=== PATIENT | female | born 1990 | race Caucasian/White ===

== ENCOUNTER 2022-12-28 15:20 | Emergency (ER) | payer OTHER ==
--- OUTSIDE RECORDS SUMMARY | 2022-12-28 15:56 | XMS REPORT | Continuity of Care Document ---
:1990 Author Organization [facility] t Address [address] [facility]. [address] [place] [address] Care Team Providers Name Role Phone Pcp, Patient Does Not Have A Primary Care Physician [phone] [facility] Attending Clinician Unavailable Unknown, Attending Attending Clinician Unavailable Jose Carlos Us Attending Clinician JOSE CARLOS HAINES Attending Clinician Unavailable Doctor Unassigned, Linda Attending Clinician Unavailable Darrel Wellington Attending Clinician Unavailable KIRSTIE Attending Clinician Unavailable Zulema Arroyo Attending Clinician Unavailable Ganesh Mcginnis Attending Clinician Unavailable Physician, No Primary or Family Admitting Clinician Unavaila diogo THACKER Admitting Clinician Unavailable Payers Payer Name Policy Type Policy Number Effective Date Expiration Date S ource Problems Condition Condition Condition Status Onset Resolution Last Treating Co mments Source Name Details Category Date Date Treatment Clinician Date 39 weeks 39 weeks Disease Active 2017-05 Unive rs gestation gestation 1-21 ity of of of 00:00: [place] 00 Medi josesito Branch Positive Positive Disease Active 2017-05 Unive rs GBS test GBS test 1-07 ity of 00:00: [place] 00 Medical Branch Obesity Obesity Disease Active Univers (BMI (BMI 9-29 ity of 30-39.9) 30-39.9) 00:00: [place] [facility] Anemia of Anemia of Disease Active Uni vers mother in mother in 9-19 ity of , , [place] ante[place] antepartum 00 Me dical Branch History of History of Disease Active U nivers gestationa gestationa 6-22 it y of l diabetes l diabetes [place] in [place] in prior 00 Medica l , , Br anch currently currently Morbid Morbid Disease Active Univers obesity obesity 06-21 ity of 00:00: [place] [facility] Rubella Rubella Disease Active Univers immune immune 06-21 ity of status not status not [place] known [place] 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 Depression Depression Disease Active U nivers 06-21 ity of 00:00: [place] [facility] Generalize Generalize Disease Active U nivers d anxiety d anxiety 06-21 ity of disorder disorder 00:00: [place] [facility] Personal Personal Problem Active Commo n history of history of Sp jordyn gestationa gestationa - [facility]I l diabetes l diabetes [facility] Supervisio Supervisio Diagnosis Active Common n of n of Spirit - CH I with other with other [facility] reproducti reproducti Me dical ve or ve or Center obstetric obstetric history, history, first first trimester trimester Second Second Diagnosis Active Common trimester trimester Spir it - CH I [facility] Dysuria Dysuria Diagnosis Active Commo n Spirit - CHI [facility] Allergies, Adverse Reactions, Alerts Allergy Allergy Status Severity Reaction(s) Onset Inactive Treating Comm ents Source Name Type Date Date Clinician No Known DA Active U [facility] Allergie 01-09 [facility] 00:00: [facility] 00 are [place] No Known DA Active U [facility] Allergie 01-09 [facility] 00:00: [facility] 00 are [place] NO KNOWN Drug Active Univers ALLERGIE Class ity of S [facility] Social History Social Habit Start Date Stop Date Quantity Comments Source Gender identity Universit y of [facility] Sexual orientation Univer sity of [facility] ASSERTION [facility] Tobacco use and 2022-12-28 2022-12-28 Smokeless Universit y of exposure 00:00:00 00:00:00 tobacco non-user [facility] dical Branch Alcohol intake 2022-12-28 2022-12-28 Current drinker Unive rsity of 00:00:00 00:00:00 of alcohol [place] [facility] (finding) [facility] History of Social 2022-12-28 2022-12-28 Univers ity of function 00:00:00 00:00:00 [facility] Alcohol Comment 2014-06-21 2014-06-21 only socially Univer sity of 00:00:00 00:00:00 [facility] Sex Assigned At [birth year] Universit y of 00:00:00 00:00:00 [facility] Smoking Status Start Date Stop Date Source Never smoked tobacco [facility] Medications Ordered Filled Start Stop Current Ordering Indication Dosage Frequency Signature Comments Components Source Medication Medication Date Date Medication? Clinician (SIG) Name Name CitraNatal CitraNatal Yes Malou 1 tablet Common Hanson Hanson 6-05 [facility] 00:00: - [facility]I 00 [facility] Vitafol-OB Vitafol-OB 2017-0 Yes Malou 1 tablet Common 5-08 [facility] 00:00: - CHI [facility] Diclegis Diclegis Yes Malou 2 Co mmon 427 [facility] 00:00: - [facility] 00 [facility] Immunizations Ordered Filled Immunization Date Status Comments Sourc e Immunization Name Name Influenza Virus 2018-02-21 Completed Universit y of Vaccine Quad ID 00:00:00 [place] [facility] ical 18-64 YRS Branch Influenza Virus 2018-02-21 Completed Universit y of Vaccine 00:00:00 [facility] Influenza Virus 2018-02-21 Completed Universit y of Vaccine Quad ID 00:00:00 [place] [facility] 18-64 YRS Branch Influenza Virus 2018-02-21 Completed Universit y of Vaccine 00:00:00 [facility] TDAP 2018-01-19 Completed University of 00:00:00 [facility] TDAP 2018-01-19 Completed University of 00:00:00 [facility] TDAP 2013-06-24 Completed University of 00:00:00 [facility] TDAP 2013-06-24 Completed [facility] 00:00:00 [facility] Vital Signs Vital Name Observation Time Observation Value Comments Source Systolic blood 2022-12-28 20:04:00 123 mm[Hg] Univer sity of pressure [facility] Diastolic blood 2022-12-28 20:04:00 82 mm[Hg] Unive rsity of pressure [facility] Heart rate 2022-12-28 20:04:00 74 /min [facility] Body temperature 2022-12-28 20:04:00 37.06 Noni [facility] Respiratory rate 2022-12-28 20:04:00 18 /min [facility] Body height 2022-12-28 20:04:00 167.6 cm [facility] Body weight 2022-12-28 20:04:00 73.936 kg [facility] BMI 2022-12-28 20:04:00 26.31 kg/m2 [facility] Oxygen saturation in 2022-12-28 20:04:00 97 /min [facility] Arterial blood by [facility] Pulse oximetry [place] Procedures Procedure Date / Time Performed Performing Clinician [facility] ASSIGNMENT OF BENEFITS 2022-12-28 19:51:49 Doctor Unassigned, No [facility] Encounters Start End Encounter Admission Attending Care Care Encounter Source Date/Time Date/Time Type Type Clinicians Facility Department ID 2022-12-28 2022-12-28 Nurse Nurse, [facility] [id number] [facility] 14:40:00 15:00:00 Visit Unknown, Attending HEALTH [id number] Jose Carlos Daniels [id number] [place] ALEX?BLEA [id number] [place] [address] MEDICAL OFFICE BUILDING 2022-12-28 2022-12-28 Outpatient R ZAKI [facility] [id number] [facility] 14:40:00 14:40:00 JOSE CARLOS dao of [facility] 2022-12-28 2022-12-28 Orders Doctor YOUSIF [id number] Univers 00:00:00 00:00:00 Only Unassigned, ERUM [id number] ity of Linda [facility] [id number] Anders as [id number] [address] 2022-10-11 2022-10-11 Emergency EM LEONARD Wellington EO5 [id number] [facility] 14:52:00 15:31:00 Darrel 46 [facility] are [place] 2021-12-06 2021-12-[address] [facility] [address] [place] 09:22:00 09:22:00 H 0716 [facility] 2021-06-17 2021-06-17 Outpatient [facility]H COH PIJFIFB VRT COH 00:00:00 00:00:00 [id number] 2021-03-06 2021-03-06 Inpatient EM LEONARD Arroyo ERIK [id number] [facility] 11:18:00 13:27:00 Zulema 20 [facility] are [place] 2021-01-09 2021-01-09 Emergency EM LEONARD Mcginnis ERIK [id number] [facility] 02:18:00 04:15:00 Ganesh 72 [facility] are [place] 2017-10-26 2017-10-26 Out[facility] 13 [id number] Common 11:00:00 11:00:00 [facility] 2017-09-28 2017-09-28 [facility] 13 [id number] Common 10:30:00 10:30:00 [facility] 2017-09-23 2017-09-23 [facility] 13 [id number] Common 16:25:00 16:25:00 [facility] 2017-09-23 2017-09-23 [facility] 13 [id number] Common 16:21:00 16:21:00 t [facility] Care [facility] 2017-09-23 2017-09-23 Outpatient Danaycaleb [place] 13 [id number] Common 13:50:00 13:50:00 [facility] 2017-09-17 2017-09-17 Outpatient [facility] 13 [id number] Common 09:45:00 09:45:00 [facility] 2017-09-06 2017-09-06 Outpatient [facility] 13 [id number] Common 10:51:00 10:51:00 [facility] Care [facility] 2017-08-31 2017-08-31 Outpatient [place] [facility] 13 [id number] Common 10:45:00 10:45:00 t [facility] it [facility] Results Test Description Test Time Test Comments Results Result Comments Source HCG POC 2022-10-11 15:11:00 Test Item Value Reference Range Interpretation Comme nts HCG POC NEGATIVE Results of (test IU/L 5.0-25.0 IU/L a re indeterminate and do not ruleout . Because code = HCG values doub le approximately every48 hours in a normal , HCGPOC) patients with l ow levels ofHCG should be resampled and retested after 48 hours toconf irm . URINALYSIS DIPSTICK [id number] 15:05:00 Test Item Value Reference Range Interpretation Comments UA COLOR (test code Yellow YELLOW = COLU) UA APPEARANCE (test Cloudy CLEAR code = APPU) UA GLUCOSE DIPSTICK NEGATIVE MG/AL NEGATIVE (test code = DGLUU) UA BILIRUBIN NEGATIVE NEGATIVE DIPSTICK (test code = BILU) UA KETONE DIPSTICK NEGATIVE MG/DL NEGATIVE (test code = KETU) UA SPECIFIC GRAVITY 1.020 1.000-1.030 (test code = SGU) UA BLOOD DIPSTICK NEGATIVE NEGATIVE (test code = TREVER) UA PH DIPSTICK (test 7.5 4.5-8.5 code = MATHEW) UA PROTEIN DIPSTICK NEGATIVE NEGATIVE (test code = PROU) UA UROBILINOGEN 0.2 EU/dL See_Comment [Automated DIPSTICK (test code message] The system = URO) which generated this result transmitted reference range : <=1.0. The reference range was not used to interpret this result as normal/abnormal . UA NITRITE DIPSTICK NEGATIVE NEGATIVE (test code = XIANG) UA LEUKOCYTE NEGATIVE NEGATIVE ESTERASE DIPSTICK (test code = LEUU) - XR FOOT 3 + V [id number] 16:03:00 [facility] : 1990 Sex: FPatient Name: LIZBET GLASS Unit No: [id number] EXAMS: CPT: [id number] XR FOOT 3 + V RT [id number] Right foot 4 views HISTORY: fall FINDINGS: No acute fracture or dislocation is identified. The soft tissues are unremarkable. IMPRESSION: 1. No acute abnormality is identified. at 1603 Reported and signed by: Carlos Benedict MD CC: Zulema Arroyo MD; Jaimee Restrepo MD Technologist: Liz Taylor Fluoro Time: DAP (Gy m2): Air Kerma (mGy): Trscr Dt/Tm: 03/06/2021 (1603) by:[email or web address] Orig Print D/T: S: 03/06/2021 (1606) BATCH NO: N/A Name: LIZBET GLASS [facility] [employer] Phys: MD Jaimee Pickard [address] [facility] : 1990 Age: 30 Sex: F Ary Soto Loc: T.ERS Exam Date: 03/06/2021 Status: DEP ER PH: FAX: PAGE 1 Signed Report- XR ANKLE 3 + V RT 2021-03-06 12:04:00 [facility] : 1990 Sex: FPatient Name: LIZBET GLASS Unit No: [id number] EXAMS: CPT: [id number] XR ANKLE 3 + V RT [id number] EXAM: XR RIGHT ANKLE 4 VIEWS DATE: 03/06/2021 11:25 AM INDICATION: Fall COMPARISON: None. TECHNIQUE: AP, bilateral oblique, and lateral radiographs of the ankle FINDINGS: No acute fracture or malalignment is identified.The ankle mortise is congruent. Moderate soft tissue swelling is seen about the ankle. There is a small ankle joint effusion. IMPRESSION: Moderate soft tissue swelling about the right ankle without underlying bony abnormality. Small right ankle joint effusion. at 1204 Reported and signed by: LISETTE MARINELLI M.D. CC: Zulema Arroyo MD; Jaimee Restrepo MD Technologist: Liz Taylor Fluoro Time: DAP (Gy m2): Air Kerma (mGy): Trscr Dt/Tm: 03/06/2021 (1204) by:[email or web address] Orig Print D/T: S: 03/06/2021 (1208) BATCH NO: N/A [facility] MD Jaimee Pickard [address] [facility] : 1990 Age: 30 Sex: F Ary Soto Loc: T.ERS Exam Date: 03/06/2021 Status: REG ER PH: FAX: PAGE 1 Signed ReportHCG SERUM [id number] 04:09:00 Test Item Value Reference Range Interpretation Comments HCG SERUM QUANT 36.9 mIU/mL HCG in non-p regnant (test code = individuals < 5 .0 IU/L HCG QUANT) (mIU/mL)HCG res ults greater than or equal t o 25 IU/L are consideredP ositive. Detection of ve ry low levels of HCG d oes not excludepregnanc y. Repeat testing after 4 8 hours is recommended. Pr egnant Gestational Age :1-10 weeks 44.71-256,740 IU/L(mIU/mL)11- 15 weeks 11,556-256,380 IU/L(mIU/mL)16- 22 weeks 7,480.8-111,954 IU/L(mIU/mL)23- 40 weeks 1,531.1-101,556 IU/L(mIU/mL) Th is assay should not be u sed to diagnose any conditionunrela olivia to . DATE OF LAST MENSTRUAL PERIOD: 01/08/21- US TRANSVAGINAL NON [id number] 04:06:00[facility] : 1990 Sex: FPatient Name: LIZBET DURAN Unit No: [id number] EXAMS: CPT: [id number] [place] [id number] Pelvic sonogram, 01/09/2021. Clinical: Vaginal bleeding. Comment: Endovaginal examination was performed. Uterus measures at least 9.6 x 5.4 x 5.9 cm. The cervix measures 4.8 cm. No IUP is identified. The right ovary measures 0.4 x 1.8 x 2.2 cm. The left ovary measures 2.1 x 1.5 x 2.3 cm. No adnexal masses are present. There is no evidence to suggest torsion. IMPRESSION: No IUP identified. at 0406 Reported and signed by: Syed Glass MD CC: Ganesh Angela MD Technologist: Chemo Becker Probe: [id number] Trscr Dt/Tm: 01/09/2021 (0406) by:[email or web address] O rig Print D/T: S: 01/09/2021 (0409) BATCH NO: N/A Name: LIZBET DURAN [facility] [employer] Phys: [id number] - Ganesh Mcginnis MD [address] [facility] : 1990 Age: 30 Sex: F Ary Soto Loc: T.ERS Exam Date: 01/09/2021 Status: REG ER PH: FAX: PAGE 1 Signed ReportBASIC METABOLIC [id number] 03:14:00 Test Item Value Reference Range Interpretation Comments SODIUM (test code 137 mmol/L 136-145 N = NA) POTASSIUM (test 4.1 MMOL/L 3.6-5.2 N code = K) CHLORIDE (test 107 MMOL/L 98-110 N code = CL) CARBON DIOXIDE 22 mEq/L 24-32 L (test code = CO2) GLUCOSE (test code 104 mg/dL 70-110 N = GLU) BLOOD UREA 11 mg/dL 7-18 N NITROGEN (test code = BUN) GLOMERULAR >=60 max >60 The estimated FILTRATION RATE estimate glomerular (test code = GFR) filtration rate is computed usingpatient ra ce, age (>18), sex, and serum creatinin e. If anyof the neede d data elements a re missing the Laboratory [place] ot compute an estimation of t he glomerular filtration rate . CREATININE (test 0.60 mg/dL 0.60-1.30 N code = CREAT) CALCIUM (test code 8.7 mg/dL 8.6-10.3 N = CA) BASIC METABOLIC [id number] 03:11:00 Test Item Value Reference Range Interpretation Comments SODIUM (test code = NA) 137 mmol/L 136-145 N POTASSIUM (test code = K) 4.1 MMOL/L 3.6-5.2 N CHLORIDE (test code = CL) 107 MMOL/L 98-110 N CARBON DIOXIDE (test code = CO2) 22 mEq/L 24-32 L GLUCOSE (test code = GLU) 104 mg/dL 70-110 N BLOOD UREA NITROGEN (test code = mg/dL 7-18 BUN) GLOMERULAR FILTRATION RATE (test >60 code = GFR) CREATININE (test code = CREAT) mg/dL 0.60-1.30 CALCIUM (test code = CA) 8.7 mg/dL 8.6-10.3 N UA RFLX MICR CULT IF [id number] 03:04:00 Test Item Value Reference Range Interpretation Comments UA COLOR (test code = Light-Yellow YELLOW COLU) UA APPEARANCE (test CLEAR CLEAR code = APPU) UA GLUCOSE DIPSTICK NEG MG/DL NEGATIVE (test code = DGLUU) UA BILIRUBIN DIPSTICK NEG NEGATIVE (test code = BILU) UA KETONE DIPSTICK NEG MG/DL NEGATIVE (test code = KETU) UA SPECIFIC GRAVITY 1.015 1.000-1.030 (test code = SGU) UA BLOOD DIPSTICK 2+ NEGATIVE A (test code = TREVER) UA PH DIPSTICK (test 6.0 4.5-8.5 code = MATHEW) UA PROTEIN DIPSTICK NEG MG/DL NEGATIVE (test code = PROU) UA UROBILINOGEN NORMAL EU/dL See_Comment [Automated message] DIPSTICK (test code = The sy stem which URO) generated this result transmit olivia reference range : <=1.0. The refe rence range was not u sed to interpret th is result as normal/abnormal . UA NITRITE DIPSTICK NEG NEGATIVE (test code = XIANG) UA LEUKOCYTE ESTERASE TRACE NEGATIVE A DIPSTICK (test code = LEUU) Indication for culture: Suprapubic PainSpecimen Description: CLEAN CATCHUA RFLX MICR CULT IF [id number] 03:04:00 Test Item Value Reference Range Interpretation Comments UA COLOR (test code = Light-Yellow YELLOW COLU) UA APPEARANCE (test CLEAR CLEAR code = APPU) UA GLUCOSE DIPSTICK NEG MG/DL NEGATIVE (test code = DGLUU) UA BILIRUBIN DIPSTICK NEG NEGATIVE (test code = BILU) UA KETONE DIPSTICK NEG MG/DL NEGATIVE (test code = KETU) UA SPECIFIC GRAVITY 1.015 1.000-1.030 (test code = SGU) UA BLOOD DIPSTICK 2+ NEGATIVE A (test code = TREVER) UA PH DIPSTICK (test 6.0 4.5-8.5 code = MATHEW) UA PROTEIN DIPSTICK NEG MG/DL NEGATIVE (test code = PROU) UA UROBILINOGEN NORMAL EU/dL See_Comment [Automated DIPSTICK (test code = messag e] The system URO) which generated this result transmitted reference range : <=1.0. The reference range was not used to interpret this result as normal/abnormal . UA NITRITE DIPSTICK NEG NEGATIVE (test code = XIANG) UA LEUKOCYTE ESTERASE TRACE NEGATIVE A DIPSTICK (test code = LEUU) UA WBC (test code = 0-3 /HPF 0-3 WBCU) UA RBC (test code = 0-3 /HPF 0-3 RBCU) UA BACTERIA (test NONE SEEN /HPF NONE SEEN code = BACU) UA SQUAMOUS CELLS RARE /HPF NONE-FEW (test code = SQU) UA MUCUS (test code = RARE /LPF NONE-FEW MUCU) Indication for culture: Suprapubic PainSpecimen Description: CLEAN CATCHCBC W/AUTO [id number] 02:55:00 Test Item Value Reference Range Interpretation Comments WHITE BLOOD CELL (test code = WBC) 7.22 K/mm3 5.0-12.0 N RED BLOOD CELL (test code = RBC) 4.65 M/mm3 4.20-5.40 N HEMOGLOBIN (test code = HGB) 12.1 G/DL 12.0-16.0 N HEMATOCRIT (test code = HCT) 39.4 % 34.9-44.5 N MEAN CELL VOLUME (test code = MCV) 85 fL 81-99 N MEAN CELL HGB (test code = MCH) 26.0 PGM 27-31 L MEAN CELL HGB CONCENTRATION (test 30.7 G/DL 33-37 L code = MCHC) RED CELL DISTRIBUTION WIDTH (test 13.1 % 11.6-16.2 N code = RDW) PLATELET COUNT (test code = PLT) 285 K/mm3 130-400 N MEAN PLATELET VOLUME (test code = 10.8 fl 7.4-10.4 H MPV) NEUTROPHIL % (test code = NT%) 55.0 % 43-65 N IMMATURE GRANULOCYTE % (test code 0.3 % 0.0-2.0 N = IG%) LYMPHOCYTE % (test code = LY%) 35.0 % 20.5-45.5 N MONOCYTE % (test code = MO%) 6.8 % 5.5-11.7 N EOSINOPHIL % (test code = EO%) 2.1 % 0.9-2.9 N BASOPHIL % (test code = BA%) 0.8 % 0.2-1.0 N NUCLEATED RBC % (test code = 0.0 % 0-1.0 N NRBC%) NEUTROPHIL # (test code = NT#) 3.97 K/mm3 2.2-4.8 N LYMPHOCYTE # (test code = LY#) 2.53 K/mm3 1.3-2.9 N MONOCYTE # (test code = MO#) 0.49 K/mm3 0.3-0.8 N EOSINOPHIL # (test code = EO#) 0.15 K/MM3 0.0-0.2 N BASOPHIL # (test code = BA#) 0.06 K/mm3 0.0-0.1 N Notes Date/Time Note Provider Source 2022-10-11 14:59:00-00:00 [facility] [place] [facility] EMERGENCY PROVIDER REPORT REPORT#:[id number] REPORT STATUS: Signed DATE:10/11/22 TIME: 1458 PATIENT: LIZBET GLASS UNIT #: [id number] ROOM: BED: AGE: 32 SEX: F PCP PHYS: No Primary or Family Ph ysician SERVICE AUTHOR: Darrel Wellington * ALL edits or amendments must be made on the [employer] Writer/computer document * HPI-Back Pain Under 40 Free Text HPI Notes Free Text HPI Notes Patient is a 32-year-old female who presents to the ER complaining of generalized low back pain. She states that when she woke up morning she could barely get out of bed due to t he pain. She denies any fever, chills, abdominal pain, urinary freq uency, dysuria or current . 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 She has not taken any medication thus far for the discomfort. The pain is much w orse in certain positions and with certain movements. It is also severely tend er to palpation. no overlying skin changes General Initial Greet Date/Time 10/11/22 1455 Presentation Chief Complaint Pain, lumbar )( Sudden in Onset? Yes Onset Occurred Days ago (4) Symptom Duration Since onset, Waxes and wanes Progression since Onset Gradually worsening Caused by Lifting Quality Aching, Painful Severity: Onset Severe Severity: Current Severe Review of Systems Focused Review of Systems Constitutional Denies: Chills, Fever, Lethargy. Respiratory Denies: Cough, non-productive, Cough, productive , Shortness of breath. Cardiovascular Denies: Chest pain, Syncope. GI Denies: Abdominal pain, Diarrhea, Nausea, Vomiti ng. Female Denies: Dysuria, Flank pain, Pelvic pain. Musculoskeletal Reports: Back pain, Lumbar pain, Myalgia, Thorac ic pain. Denies: Extremity pain. Hematologic Denies: Bleeding, Bruising. Neurologic Denies: Bladder dysfunction, Bowel dysfunction, Change LOC, Dizziness, Focal weakness, Headache, Numbness, Slurred speech. Past Medical History - Adult Stated Complaint MID AND LOWER BACK PAIN LEFT SI DE Allergies Coded Allergies: No Known Allergies (01/09/21) Home Medications Active Scripts Acetaminophen (Tylenol) 3 TAB PO Q6H PRN PAIN/ F EVER Acetaminophen (Tylenol) 3 TAB PO Q6H PRN PAIN/ FEVER #30 TABS Prov: 01/09/21 IBUPROFEN (ADVIL) 800 MG PO Q8H IBUPROFEN (ADVIL) 800 MG PO Q8H #30 TABS Prov: 03/06/21 DME - CRUTCHES (CRUTCH SET) EACH [facility] DME - CRUTCHES (CRUTCH SET) EACH [facility] #1 Prov: 03/06/21 Pt reports no significant: Past medical history, Past surgical history, Family history, Social history Physical Exam Vital Signs Vital Signs First Documented: Result Date Time Pulse Ox 100 10/11 1458 Temp 98.6 10/11 1458 Pulse 77 10/11 1458 Resp 18 10/11 1458 B/P 122/78 10/11 1459 B/P Mean 93.0 10/11 1459 Last Documented: Result Date Time Pulse Ox 100 10/11 1459 B/P 122/78 10/11 1459 B/P Mean 93.0 10/11 1459 Pulse 79 10/11 1459 Resp 18 10/11 1459 Temp 98.6 10/11 1458 Review of Vital Signs Reviewed Focused PE General/Const General/Const Awake, Alert, Well appearing MS Neck Neck Atraumatic, Supple, No meningismus, Full r justin of motion, No swelling, Non-tender, No midline vertebral tend, No masses , No crepitus Resp/Chest Respiratory/Chest Breath sounds NL, Breath soun ds = bilat, No respiratory distress, No rales, No rhonchi, No wheezing Cardiovascular Cardiovascular Heart rate NL, Regular rhythm, H eart sounds NL, Peripheral circulation NL Abdomen/GI Abdomen/GI Soft, Non-tender, No guarding, No re bound MS Back Flank/Spine/Paraspinal Thorac paraspinal tend, Lumbar paraspinal tend, Sacral paraspinal tend, Sacral spine tender. Muscle Spasm/ROM Thoracic area spasm, Lumbar area spasm. MS Lower Extrem Lower Ext/Pelvis/MS Inspection NL, No swelling, Non-tender, No erythema, No deformity, Neurologic intact, Vascular intact, N o edema Neurologic Neurologic Oriented X3, Speech NL, No motor def icits, No sensory deficits, Reflexes equal bilat Interpretation Diagnostics Lab Results Interpretation Results Laboratory Tests: 10/11 10/11 1504 1507 Urines Urine Color (YELLOW) Yellow Urine Appearance (CLEAR) Cloudy Urine pH (4.5 - 8.5) 7.5 Ur Specific [place] (1.000 - 1.030) 1.020 Urine Protein (NEGATIVE) NEGATIVE Urine Glucose (UA) (NEGATIVE MG/AL) NEGATIVE Urine Ketones (NEGATIVE MG/DL) NEGATIVE Urine Blood (NEGATIVE) NEGATIVE Urine Nitrite (NEGATIVE) NEGATIVE Urine Bilirubin (NEGATIVE) NEGATIVE Urine Urobilinogen (<=1.0 EU/dL) 0.2 Ur Leukocyte Esterase (NEGATIVE) NEGATIVE POC Urine HCG (IU/L) NEGATIVE Lab Statement Laboratory studies reviewed and considered in th e medical decision-making. Re-Evaluation MDM Re-Evaluation/Progress Back Pain MDM Note The patient presented with acute back pain. The patient is now resting comfortably and feels better, is alert, talkativ e, interactive and in no distress. The repeat examination is unremarkable and benign. The patient is neurologically intact and is ambulatory in the ED. The patient has no fever, no bowel or bladder incontinenc e, no saddle anesthesia, and is otherwise alert and well-appearing. The history, physical ex amination, and diagnostics (if any) do not suggest the presence of acute spinal epidural abscess, acute spinal epidural bleed, cauda equina syndrome, abdominal aortic a neurysm, aortic dissection or other process requiring further testing, treatme nt or consultation in the emergency department. The vi jasper signs have been stable. The patient's condition is stable and appropriate for discharge. The pat ient will pursue further outpatient evaluation with the primary care phys jama or other designated or consulting physician as indicated in the dischar ge instructions. ED Course Medication(s) Ordered Medication(s) Ordered: Central Nervous System Agents Sig/Bob Start time Last Medication Dose Route Stop Time Status Admin Ketorolac 30 MG X1ED STA 10/11 1509 DC 10/11 Tromethamine IM 10/11 1510 1522 Differential Diagnosis Differential Diagnosis Lumbar strain, Musculoske letal pain, Sciatica, Spinal mass, Thoracic strain, Ureterolithiasis, Urinary obstruction, Urinary tract infection, Urolithiasis Patient Discharge Departure Vital Signs/Condition Vital Signs First Documented: Result Date Time Pulse Ox 100 10/11 1458 Temp 98.6 10/11 1458 Pulse 77 10/11 1458 Resp 18 10/11 1458 B/P 122/78 10/11 1459 B/P Mean 93.0 10/11 1459 Last Documented: Result Date Time Pulse Ox 100 10/11 1459 B/P 122/78 10/11 1459 B/P Mean 93.0 10/11 1459 Pulse 79 10/11 1459 Resp 18 10/11 1459 Temp 98.6 10/11 1458 All vital signs available at the time of this en try have been reviewed. Condition Stable, Improved Clinical Impression Clinical Impression Primary Impression: Acute lumbar myofascial stra in Secondary Impressions: Acute thoracic myofascial strain Disposition Decision Discharge )( Discharged to Home Yes )( Time 1524 )( Date 10/11/22 Discharge/Care Plan Counseled Regarding Diagnosis, Lab resul ts, Prescriptions, Need for follow-up, When to return to ED (Auto) Prescriptions Current Visit Scripts Tizanidine (Zanaflex) 2 MG PO Q6H PRN PRN MUSCLE SPASM Tizanidine (Zanaflex) 2 MG PO Q6H PRN PRN MUSCL E SPASM #24 TABS Ibuprofen (Motrin) 600 MG PO TID PRN pain Ibuprofen (Motrin) 600 MG PO TID PRN pain #30 T ABS Tramadol (Ultram) 50 MG PO BID Tramadol (Ultram) 50 MG PO BID #8 TABS Patient Instructions ED Back Pain (Acute or [employer] dorothy) Departure Forms WORK/SCHOOL EXCUSE VARIABLE Any Restrictions Off work/school 2 days Comment: no lifting over 15 pounds for5 days Discharge Note I have spoken with the patie nt and/or caregivers. I have explained the patient's condition, diagnoses and sukhwinder atment plan based on the information available to me at this time. I have answered the patient's and/ or caregiver's questions and addressed any concerns. The patient and/or careg shantell have as good an understanding of the patient 's diagnosis, condition and treatment plan as can be expected at this point. The vital signs have bee n stable. The patient's condition is stable and appr opriate for discharge from the emergency department. The patient will pursue further outpatient evalu ation with the primary care physician or other designated or consulting phys ician as outlined in the discharge instructions. The patient and/or caregivers are agreeable to this plan of care and follow-up instructions have been exp lained in detail. The patient and/or caregivers have received these instructio ns in written format and have expressed an understanding of the discharge inst ructions. The patient and/or caregivers are aware that any significant change in condition or worsening of symptoms should prompt an immediate return to [facility] or the closest emergency department or a call to 911. at 1623 RPT #:[id number] END OF REPORT 2021-03-06 11:25:00-00:00 [facility] EMERGENCY PROVIDER REPORT REPORT#:[id number] REPORT STATUS: Signed DATE:03/06/21 TIME: 112 PATIENT: LIZBET GLASS UNIT #: [id number] ROOM: BED: AGE: 30 SEX: F PCP PHYS: No Primary or Family Ph ysician SERVICE AUTHOR: MD Jaimee Restrepo PA * ALL edits or amendments must be made on the [employer] Writer/computer document * MD Jaimee Restrepo 03/06/21 1125: HPI-Extremity Prob Lower Free Text HPI Notes Free Text HPI Notes This 30-year-old female in E D complaints right ankle pain. Patient was carrying child downstairs yesterday night. Patient lost b alance and fell and twisted right ankle. Patient denies hitting head or loss of consciousness.. Last night patient able to bear weight. Patient not iced swelling and increased tenderness this morning. Patient is here to rule out any fr acture. Denies any fever, chills, nausea, vomiting, di zziness, chest pain, shortness of breath, abdominal pain or back pain. Alert and oriented x3. No acu te distress. General Confirmed Patient Yes Patient Type New patient Initial Greet Date/Time 03/06/21 1122 Presentation Chief Complaint Ankle problem R Risk-Extremity Prob Lower Risk Stratification Well's Criteria for DVT Well's Criteria for DVT Response Value Active Cancer? No 0 Immob Lower Extremity? No 0 Bed >3 Days/Surg Last 4 Weeks? No 0 Local Tend Deep Veinous Sys? No 0 Entire Leg Swollen? No 0 Calf Swelling >3cm? No 0 Pit Edema in Symptomatic Leg? No 0 Collat Superficial Veins? No 0 Previous Documented DVT? No 0 Total 0 Review of Systems Focused Review of Systems Constitutional Denies: Chills, Fever, Lethargy. Musculoskeletal Reports: Joint pain, Joint swelling. Skin Denies: Diaphoresis, Rash. Neurologic Denies: Focal weakness, Numbness. Additional Review of Systems Eyes Denies: Blurred R, Blurred L. Ears/Nose/Throat Denies: Ear drainage R, Ear drainage L. Respiratory Denies: Cough, non-productive, Cough, productive . Cardiovascular Denies: Chest pain, Dyspnea on exertion. GI Denies: Abdominal pain, Anorexia. Female Denies: Dysuria, Flank pain. Hematologic Denies: Adenopathy, Bleeding. Endocrine Denies: Cold intolerance, Heat intolerance. Allergy/Immun Denies: Allergic reaction, Anaphylaxis. Psychiatric Denies: Agitation, Anxiety. Past Medical History - Adult Stated Complaint RIGHT ANKLE Allergies Coded Allergies: No Known Allergies (01/09/21) Home Medications Active Scripts Acetaminophen (Tylenol) 3 TAB PO Q6H PRN PAIN/ F EVER Acetaminophen (Tylenol) 3 TAB PO Q6H PRN PAIN/ FEVER #30 TABS Prov: 01/09/21 Review of Nursing Notes Rev avail, and agree Physical Exam Vital Signs Vital Signs First Documented: Result Date Time Pulse Ox 99 03/06 1121 B/P 128/77 03/06 1121 B/P Mean 94 03/06 1121 O2 Delivery Room air 03/06 1121 Temp 98.3 03/06 1121 Pulse 99 03/06 1121 Resp 18 03/06 1121 Last Documented: Result Date Time Pulse Ox 97 03/06 1326 B/P 122/75 03/06 1326 B/P Mean 90 03/06 132 O2 Delivery Room air 03/06 132 Temp 98.2 03/06 132 Pulse 78 03/06 1326 Resp 16 03/06 1326 Review of Vital Signs Reviewed Focused PE General/Const General/Const Awake, Alert, Well appearing Resp/Chest Respiratory/Chest Breath sounds NL, Breath soun ds = bilat, No respiratory distress, No rales, No rhonchi, No wheezing Cardiovascular Cardiovascular Heart rate NL, Regular rhythm, H eart sounds NL, Peripheral circulation NL MS Lower Extrem Lower Ext/Pelvis/MS Atraumatic, Inspection NL, Full range of motion, No swelling, Non-tender, No erythema, No deformity, Neurologic intact, Vascular intact, No edema MS Ankle/Foot Ankle/Foot Atraumatic, Inspection NL, Full rang e of motion, No swelling, No erythema, Non-tender, No def ormity, Neurologic intact, Vascular intact, No edema Right Ankle Swelling present, Tenderness present, Tender la t ligaments, Tender medial ligaments. Skin Skin Color NL, Warm, Dry, Intact, Turgor NL, No swelling Neurologic Neurologic Oriented X3, Speech NL, No motor def icits, No sensory deficits Additional PE MS Head Head Atraumatic, Normocephalic Eyes Eyes Atraumatic, PERRL Ears/Nose/Throat Ears/Nose/Throat Atraumatic, Airway patent MS Neck Neck Atraumatic, Supple Abdomen/GI Abdomen/GI Atraumatic, Soft MS Back Back Atraumatic, Inspection NL Lymphatic Lymphatic No gross adenopathy, No cervical darlene opathy MS Upper Extrem Upper Extremity/MS Atraumatic, Inspection NL MS Wrist/Hand Wrist/Hand Atraumatic, Inspection NL Psychiatric Psychiatric Affect NL, Mood NL Interpretation Diagnostics Lab Results Interpretation Results Recent Impressions: RADIOLOGY - XR FOOT 3 + V RT 03/06 1145 Report Impression - Status: SIGNED Entered: 03/06/2021 1606 IMPRESSION: 1. No acute abnormality is identified. Impression By: [email or web address] - Carlos Benedict MD RADIOLOGY - XR ANKLE 3 + V RT 03/06 1145 Report Impression - Status: SIGNED Entered: 03/06/2021 1208 IMPRESSION: Moderate soft tissue swelling about the right an kle without underlying bony abnormality. Small right ankle joint effusion. Impression By: [email or web address] - LISETTE MARINELLI M.D. Lab Imaging Statement radiographic studies reviewed and considered in the medical decision-making. Point of Care Testing Pulse Oximetry Pulse Ox % 98 On: Room air Interpretation Interpreted by fl Time 1132 Re-Evaluation MDM ED Course Medication(s) Ordered Medication(s) Ordered: Central Nervous System Agents Sig/Bob Start time Last Medication Dose Route Stop Time Status Admin Ketorolac 60 MG X1ED STA 03/06 1124 DC 03/06 Tromethamine IM 03/06 1125 1130 Free Text MDM Notes Free Text MDM Notes X-ray right ankle shows IMPRESSION: Moderate soft tissue swelling about the right a nkle without underlying bony abnormality. Small right ankle joint effusion. X-ray of the area. Rx for crutches given. Ave t advised to follow-up with orthopedics. Patient Discharge Departure Vital Signs/Condition Vital Signs First Documented: Result Date Time Pulse Ox 99 03/06 1121 B/P 128/77 03/06 1121 B/P Mean 94 03/06 1121 O2 Delivery Room air 03/06 1121 Temp 98.3 03/06 1121 Pulse 99 03/06 1121 Resp 18 03/06 1121 Last Documented: Result Date Time Pulse Ox 97 03/06 1326 B/P 122/75 03/06 1326 B/P Mean 90 03/06 1326 O2 Delivery Room air 03/06 1326 Temp 98.2 03/06 1326 Pulse 78 03/06 1326 Resp 16 03/06 1326 All vital signs available at the time of this en try have been reviewed. Condition Stable, Improved Clinical Impression Clinical Impression Primary Impression: Ankle sprain Disposition Decision Discharge )( Discharged to Home Yes )( Time 1315 )( Date 03/06/21 Discharge/Care Plan Counseled Regarding Diagnosis, Imaging studies (Auto) Prescriptions Current Visit Scripts IBUPROFEN (ADVIL) 800 MG PO Q8H IBUPROFEN (ADVIL) 800 MG PO Q8H #30 TABS DME - CRUTCHES (CRUTCH SET) EACH MISC ASDIR DME - CRUTCHES (CRUTCH SET) [facility]ACH [facility] Crutch set of choice Patient Instructions ED Ankle Sprain (Adult) Referrals Camden Liang Jr, MD Discharge Note I have spoken with the patie nt and/or caregivers. I have explained the patient's condition, diagnoses and sukhwinder atment plan based on the information available to me at this time. I have answered the patient's and/ or caregiver's questions and addressed any concerns. The patient and/or careg shantell have as good an understanding of the patient 's diagnosis, condition and treatment plan as can be expected at this point. The vital signs have bee n stable. The patient's condition is stable and appr opriate for discharge from the emergency department. The patient will pursue further outpatient evalu ation with the primary care physician or other designated or consulting phys ician as outlined in the discharge instructions. The patient and/or caregivers are agreeable to this plan of care and follow-up instructions have been exp lained in detail. The patient and/or caregivers have received these instructio ns in written format and have expressed an understanding of the discharge inst ructions. The patient and/or caregivers are aware that any significant change in condition or worsening of symptoms should prompt an immediate return to [facility] or the closest emergency department or a call to 911. Zulema Arroyo 03/10/21 0626: Patient Discharge Departure Supervising Physician Note Siddharth Saw Pt Alone I have reviewed the PA/VINEYARD WORKER's note and plan of car e. I was available for consultation as needed at al l times during the patient's visit in the emergency department. I agree with the clinical impression , plan and disposition. Electronically Signed by MD Jaimee Restrepo on at 1401 at 0626 RPT #:[id number] END OF REPORT 2021-01-09 02:20:00-00:00 [facility] ([facility]) EMERGENCY PROVIDER REPORT REPORT#:[id number] REPORT STATUS: Signed DATE:01/09/21 TIME: 219 PATIENT: LIZBET DURAN UNIT #: [id number] ROOM: BED: AGE: 30 SEX: F PCP PHYS: No Primary or Family Ph ysician SERVICE AUTHOR: Ganesh Mcginnis MD * ALL edits or amendments must be made on the [employer] Writer/computer document * HPI-Preg Under 20 Weeks Free Text HPI Notes Free Text HPI Notes Pt is a 30 y/o A1 "4.5" week female presenting to the ED via private vehicle for c/o vagi nal bleeding and cramping that came on today around 1930. Pt states that when bleeding first came on it was light pink but notes that x1 hour ago she noted that bleeding became heavier and she started experiencing cramping. She also c/o nausea. General Confirmed Patient Yes Patient Type New patient Initial Greet Date/Time 01/09/21218 Presentation Chief Complaint Vaginal bleeding Hx Obtained From Patient Onset Occurred Today Symptom Duration Since onset Progression since Onset Constant Severity: Onset Moderate Severity: Current Moderate Review of Systems Free Text ROS Notes Free Text ROS Notes See HPI, 10 point review of systems otherwise ne gative Past Medical History - Adult Stated Complaint VAGINAL BLEEDING AND CRAMPING Allergies Coded Allergies: No Known Allergies (01/09/21) Review of Nursing Notes Rev avail, and agree Pt reports no significant: Past medical history, Past surgical history, Family history, Social history Physical Exam Vital Signs Vital Signs First Documented: Result Date Time Pulse Ox 100 01/09 0231 B/P 124/85 01/09 0231 B/P Mean 98.0 01/09 231 Temp 98.4 01/09 231 Pulse 79 01/09 0231 Resp 18 01/09 0231 O2 Delivery Room air 01/09 415 Last Documented: Result Date Time Pulse Ox 100 01/09 0415 B/P 116/74 01/09 0415 B/P Mean 88 01/09 415 O2 Delivery Room air 01/09 415 Temp 98.4 01/09 415 Pulse 75 01/09 0415 Resp 16 01/09 415 Review of Vital Signs Reviewed Free Text PE Notes Free Text PE Notes CONSTITUTIONAL: Well developed, well nourished. No acute distress. HEAD: Scalp is atraumatic. Normocephalic. EYES: PERRL. EOMI. Conjunctivae are not injected . ENT: Moist mucus membranes. NECK: Full ROM. No Stridor. CARDIOVASCULAR: Regular rhythm, rate. No murmurs , rubs, or gallops. RESPIRATORY/CHEST: No respiratory distress. No t achypnea. ABDOMEN/BACK: Soft and non-distended. Suprapubic tenderness. No CVA TTP. EXTREMITIES: No C/C/E. FROM in all extremities. No calf tenderness. SKIN: Warm, dry intact. No petechiae, purpura, r ashes. NEURO: AAO x 3 and situation. Normal speech. PSYCH: Good eye contact. Normal interaction, aff ect, and behavior. Interpretation Diagnostics Lab Results Interpretation Results Laboratory Tests 01/09/21238: [Embedded Image Not Available] Laboratory Tests: 01/09 Chemistry Sodium (136 - 145 mmol/L) 137 Potassium (3.6 - 5.2 MMOL/L) 4.1 Chloride (98 - 110 MMOL/L) 107 Carbon Dioxide (24 - 32 mEq/L) 22 L BUN (7 - 18 mg/dL) 11 Creatinine (0.60 - 1.30 mg/dL) 0.60 Glomerular Filtr Rate (>60) >=60 max estimate Glucose (70 - 110 mg/dL) 104 Calcium (8.6 - 10.3 mg/dL) 8.7 HCG, Quant (mIU/mL) 36.9 Hematology WBC (5.0 - 12.0 K/mm3) 7.22 RBC (4.20 - 5.40 M/mm3) 4.65 Hgb (12.0 - 16.0 G/DL) 12.1 Hct (34.9 - 44.5 %) 39.4 MCV (81 - 99 fL) 85 MCH (27 - 31 PGM) 26.0 L MCHC (33 - 37 G/DL) 30.7 L RDW (11.6 - 16.2 %) 13.1 Plt Count (130 - 400 K/mm3) 285 MPV (7.4 - 10.4 fl) 10.8 H Neut % (Auto) (43 - 65 %) 55.0 Lymph % (Auto) (20.5 - 45.5 %) 35.0 Bartholomew % (Auto) (5.5 - 11.7 %) 6.8 Eos % (Auto) (0.9 - 2.9 %) 2.1 Baso % (Auto) (0.2 - 1.0 %) 0.8 Neut # (Auto) (2.2 - 4.8 K/mm3) 3.97 Lymph # (Auto) (1.3 - 2.9 K/mm3) 2.53 Bartholomew # (Auto) (0.3 - 0.8 K/mm3) 0.49 Eos # (Auto) (0.0 - 0.2 K/MM3) 0.15 Baso # (Auto) (0.0 - 0.1 K/mm3) 0.06 Immature Gran % (0.0 - 2.0 %) 0.3 Nucleated RBC % (0 - 1.0 %) 0.0 01/09 0250 Urines Urine Color (YELLOW) Light-Yellow Urine Appearance (CLEAR) CLEAR Urine pH (4.5 - 8.5) 6.0 Ur Specific [place] (1.000 - 1.030) 1.015 Urine Protein (NEGATIVE MG/DL) NEG Urine Glucose (UA) (NEGATIVE MG/DL) NEG Urine Ketones (NEGATIVE MG/DL) NEG Urine Blood (NEGATIVE) 2+ A Urine Nitrite (NEGATIVE) NEG Urine Bilirubin (NEGATIVE) NEG Urine Urobilinogen (<=1.0 EU/dL) NORMAL Ur Leukocyte Esterase (NEGATIVE) TRACE A Urine RBC (0 - 3 /HPF) 0-3 Urine WBC (0 - 3 /HPF) 0-3 Ur Squamous Epith Cells (NONE - FEW /HPF) RARE Urine Bacteria (NONE SEEN /HPF) NONE SEEN Urine Mucus (NONE - FEW /LPF) RARE Recent Impressions: ULTRASOUND - US TRANSVAGINAL NON OB 01/091 Report Impression - Status: SIGNED Entered: 01/09/2021408 IMPRESSION: No IUP identified. Impression By: [email or web address] - Syed Glass MD Lab Imaging Statement Laboratory radiographic studies reviewed and con sidered in the medical decision-making. Point of Care Testing Pulse Oximetry Pulse Ox % 100 On: Room air Interpretation Interpreted by me, Pulse oximetr y normal Time 0236 Re-Evaluation MDM Re-Evaluation/Progress Re-Evaluation/Progress Text/Dict Note Discussed lab and imaging results with pt, will plan to d/c pt home. ED Course Medication(s) Ordered Medication(s) Ordered: Central Nervous System Agents Sig/Bob Start time Last Medication Dose Route Stop Time Status Admin Acetaminophen 1,000 MG X1ED STA 01/09 229 DC 0 01/09 PO 01/09 0230 0303 Gastrointestinal Drugs Sig/Bob Start time Last Medication Dose Route Stop Time Status Admin Ondansetron HCl 4 MG X1ED STA 01/099 DC IV 01/09 0230 0303 Differential Diagnosis Differential Diagnosis Discomfort of , Miscarriage, Vaginal bleeding Patient Discharge Departure Vital Signs/Condition Vital Signs First Documented: Result Date Time Pulse Ox 100 01/09 0231 B/P 124/85 01/09 0231 B/P Mean 98.0 01/09 0231 Temp 98.4 01/09 0231 Pulse 79 01/09 0231 Resp 18 01/09 0231 O2 Delivery Room air 01/09 0415 Last Documented: Result Date Time Pulse Ox 100 01/09 0415 B/P 116/74 01/09 0415 B/P Mean 88 01/09 0415 O2 Delivery Room air 01/09 0415 Temp 98.4 01/09 0415 Pulse 75 01/09 0415 Resp 16 01/09 0415 All vital signs available at the time of this en try have been reviewed. Condition Stable Clinical Impression Clinical Impression Primary Impression: Complete miscarriage Disposition Decision Discharge )( Discharged to Home Yes )( Time 0413 )( Date 01/09/21 Discharge/Care Plan Counseled Regarding Diagnosi s, Lab results, Imaging studies, Need for follow-up, When to return to ED (Auto) Prescriptions Current Visit Scripts Acetaminophen (Tylenol) 3 TAB PO Q6H PRN PAIN/ F EVER Acetaminophen (Tylenol) 3 TAB PO Q6H PRN PAIN/ FEVER #30 TABS Take according to directions on label. Patient Instructions Understanding Miscarriage . .. Referrals Devika Frazier MD: 1 Week Discharge Note I have spoken with the patie nt and/or caregivers. I have explained the patient's condition, diagnoses and sukhwinder atment plan based on the information available to me at this time. I have answered the patient's and/ or caregiver's questions and addressed any concerns. The patient and/or careg shantell have as good an understanding of the patient 's diagnosis, condition and treatment plan as can be expected at this point. The vital signs have bee n stable. The patient's condition is stable and appr opriate for discharge from the emergency department. The patient will pursue further outpatient evalu ation with the primary care physician or other designated or consulting phys ician as outlined in the discharge instructions. The patient and/or caregivers are agreeable to this plan of care and follow-up instructions have been exp lained in detail. The patient and/or caregivers have received these instructio ns in written format and have expressed an understanding of the discharge inst ructions. The patient and/or caregivers are aware that any significant change in condition or worsening of symptoms should prompt an immediate return to [facility] or the closest emergency department or a call to 911. Quality Measures BP F/U for HTN BP in normal range Electronically Signed by Ganesh Mcginnis MD on at 0529 RPT #:[id number] END OF REPORT
--- NOTE | 2022-12-28 16:48 | RAD REPORT ---
EXAM DESCRIPTION: US - Transvaginal OB - 12/28/2022 4:32 pm CLINICAL HISTORY: with pelvic pain COMPARISON: None. FINDINGS: The uterus measures 10 x 6 x 8 centimeters. A gestational sac is present within the endom etrium measuring 8 x 6 x 6 millimeters. Yolk sac is seen. A pole was not visualized. 2.6 centim eters subchorionic bleed. Ovaries are normal in size and echotexture.. 2.6 centimeter left ovarian cyst. Right ovary not seen secondary to overlying bowel gas The right and left adnexa unremarkable No significant free fluid IMPRESSION: Intrauterine with an estimated gestational age 5 weeks 3 days YANNI 08/27/2023. It is recommended that the patient have serial beta HCG levels as well as a followup endovaginal sono gram in approximately 1 week for re-evaluation
[2022-12-28 18:03] LABS: Absolute Lymphocytes (CBC) 2.1 K/uL (0.7-4.9); Lymphocytes % 28.3 % (15.3-44.8); MCV 82.3 fL (80-100); MPV 9.3 fL (7.6-11.3); Platelets 267 thou/uL (152-406); RBC Red Blood Cell Count 4.74 M/uL (3.86-4.86)
[2022-12-28 18:03] LABS: Specific Gravity 1.023 (1.005-1.030); Urine Bilirubin NEGATIVE (Negative); Urine Blood Negative (Negative); Urine Clarity Clear (Clear); Urine Color Light-Yellow (Yellow); Urine Glucose NEGATIVE (Negative); Urine Protein NEGATIVE (Negative); Urine Urobilinogen Normal (Normal); Urine pH 5.5 (5.0-7.0)
[2022-12-28 18:04] LABS: Specific Gravity 1.023 (1.005-1.030)
--- NOTE | 2022-12-28 18:29 | EDPHYS ---
Physician Documentation [facility] Name: Lizbet Glass Age: 32 yrs Sex: Female : 1990 Arrival Date: 12/28/2022 Time: 15:20 Bed 9 Private MD: ED Physician Edmond Sepulveda HPI: 12/28 16:05 This 32 yrs old Female presents to ER via Ambulatory with complaints of Pelvic Pain, 6 jh7 Weeks PG. 16:05 Onset: The symptoms/episode began/occurred yesterday. Associated signs and symptoms: jh7 Pertinent negatives: chest pain, dysuria, fever. 32-year-old female reports that she is 6 weeks and experienced pelvic pain during intercourse yesterday. Reports that she experienced the same pain after intercourse today. G5, P3, A1, L3. Denies fever, vaginal discharge, or vaginal bleeding.. 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 - Social history:: Smoking status: Patient/guardian denies using tobacco. ROS: 16:05 Constitutional: Negative for fever, chills, and weight loss, Eyes: Negative for injury, jh7 pain, redness, and discharge, Neck: Negative for injury, pain, and swelling, Cardiovascular: Negative for chest pain, palpitations, and edema, Respiratory: Negative for shortness of breath, cough, wheezing, and pleuritic chest pain, MS/Extremity: Negative for injury and deformity, Skin: Negative for injury, rash, and discoloration, Neuro: Negative for headache, weakness, numbness, tingling, and seizure. 16:05 Abdomen/GI: Positive for abdominal pain, Negative for nausea, vomiting, and diarrhea. 16:05 : Positive for pelvic pain, Negative for urinary symptoms. 16:05 All other systems are negative. Exam: 16:05 Constitutional: This is a well developed, well nourished patient who is awake, alert, jh7 and in no acute distress. Head/Face: Normocephalic, atraumatic. Neck: Trachea midline, no thyromegaly or masses palpated, and no cervical lymphadenopathy. Supple, full range of motion without nuchal rigidity, or vertebral point tenderness. No Meningismus. Cardiovascular: Regular rate and rhythm with a normal S1 and S2. No gallops, murmurs, or rubs. Normal PMI, no JVD. No pulse deficits. Respiratory: Lungs have equal breath sounds bilaterally, clear to auscultation and percussion. No rales, rhonchi or wheezes noted. No increased work of breathing, no retractions or nasal flaring. Abdomen/GI: Soft, non-tender, with normal bowel sounds. No distension or tympany. No guarding or rebound. No evidence of tenderness throughout. Skin: Warm, dry with normal turgor. Normal color with no rashes, no lesions, and no evidence of cellulitis. MS/ Extremity: Pulses equal, no cyanosis. Neurovascular intact. Full, normal range of motion. Neuro: Awake and alert, GCS 15, oriented to person, place, time, and situation. Motor strength 5/5 in all extremities. Sensory grossly intact. Normal gait. 16:05 Abdomen/GI: Inspection: abdomen appears normal, Bowel sounds: normal, Palpation: soft, mild abdominal tenderness, in the suprapubic area. Vital Signs: 16:02 BP 135 / 93; Pulse 81; Resp 16 S; Temp 98.6; Pulse Ox 100% ; Weight 73.94 kg; Height 5 cm10 ft. 6 in. ; Pain 4/10; 17:30 BP 100 / 73; Pulse 81; Resp 16; Pulse Ox 100% on R/A; tf2 16:02 Body Mass Index 26.31 (73.94 kg, 167.64 cm) cm10 16:02 Pain Scale: Adult cm10 [place] Coma Score: 17:30 Eye Response: spontaneous(4). Motor Response: obeys commands(6). Verbal Response: tf2 oriented(5). Total: 15. MDM: 15:22 Patient medically screened. [facility] 18:33 Differential diagnosis: Subchorionic hemorrhage, ectopic , ovarian cyst, jh7 ovarian torsion. Data reviewed: vital signs, nurses notes, radiologic studies, ultrasound. Counseling: I had a detailed discussion with the patient and/or guardian regarding: the historical points, exam findings, and any diagnostic results supporting the discharge/admit diagnosis, the need for outpatient follow up, an OB/Gyne specialist, to return to the emergency department if symptoms worsen or persist or if there are any questions or concerns that arise at home. 12/28 15:37 Order name: Basic Metabolic Panel; Complete Time: 18:56 [facility] 12/28 15:37 Order name: CBC with Diff; Complete Time: 18:27 [facility] 12/28 15:37 Order name: Test, Urine; Complete Time: 18:27 [facility] 12/28 15:37 Order name: Quantitative Hcg; Complete Time: 18:56 [facility] 12/28 15:37 Order name: Urinalysis w/ reflexes; Complete Time: 18:27 [facility] 12/28 15:37 Order name: US Transvaginal Ob; Complete Time: 16:49 [facility] 12/28 15:37 Order name: IV Saline Lock; Complete Time: 17:53 [facility] 12/28 15:37 Order name: Labs collected and sent; Complete Time: 17:53 [facility] 12/28 15:37 Order name: NPO; Complete Time: 17:53 [facility] Administered Medications: No medications were administered Disposition: 12/29 06:59 Co-signature as Attending Physician, Edmond Sepulveda MD I reviewed the patient's care rn provided by the Advanced Practice Provider and agree with the diagnosis and treatment plan. Disposition Summary: 12/28/22 18:28 Discharge Ordered Location: Home [facility] Problem: new [facility] Symptoms: have improved [facility] Condition: Stable [facility] Diagnosis - Pelvic Pain jh7 - Subchorionic hemorrhage 7 Followup: [facility] - With: Private Physician - When: 2 - 3 days - Reason: Recheck today's complaints Discharge Instructions: - Discharge Summary Sheet jh7 - Pelvic Pain, Female jh7 - Subchorionic Hematoma jh7 - First Trimester of [facility] Forms: - Work release form eh3 - Family Work Release eh3 - Medication Reconciliation Form [facility] - Thank You Letter [facility] - Patient Portal Instructions [facility] Signatures: Dispatcher [employer] Edmond Spear MD MD rn Hadash, Jennifer, FNP TIME STUDY OBSERVER [facility] Day Guaman RN RN cm10
--- NOTE | 2022-12-28 18:29 | ER ---
Nurse's Notes [facility] Name: Lizbet Glass Age: 32 yrs Sex: Female : 1990 Arrival Date: 12/28/2022 Time: 15:20 Bed 9 Private MD: Diagnosis: Pelvic Pain;Subchorionic hemorrhage Presentation: 12/28 16:02 Chief complaint: Patient states: pelvic pain onset during intercourse. Pt states that cm10 the pain started yesterday. Pt states that the pain was a sharp pain and now it is an aching pain. . Coronavirus screen: Vaccine status: Patient reports receiving the 2nd dose of the covid vaccine. Ebola Screen: No symptoms or risks identified at this time. Initial Sepsis Screen: Does the patient meet any 2 criteria? No. Patient's initial sepsis screen is negative. Does the patient have a suspected source of infection? No. Patient's initial sepsis screen is negative. Risk Assessment: Do you want to hurt yourself or someone else? Patient reports no desire to harm self or others. Onset of symptoms was December 27, 2022. 16:02 Method Of Arrival: Ambulatory cm10 16:02 Acuity: SUKHWINDER 3 cm10 Triage Assessment: 16:05 General: Appears in no apparent distress. comfortable, Behavior is calm, cooperative. 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 - Social history:: Smoking status: Patient/guardian denies using tobacco. Screenin:30 [facility] ED Fall Risk Assessment (Adult) History of falling in the last 3 months, tf2 including since admission No falls in past 3 months (0 pts) Confusion or Disorientation No (0 pts) Intoxicated or Sedated No (0 pts) Impaired Gait No (0 pts) Mobility Assist Device Used No (0 pt) Altered Elimination No (0 pt) Score/Fall Risk Level 0 - 2 = Low Risk Oriented to surroundings. Abuse screen: Denies threats or abuse. Denies injuries from another. Nutritional screening: No deficits noted. Tuberculosis screening: No symptoms or risk factors identified. Assessment: 17:54 General: Appears in no apparent distress. Pain: Complains of pain in pelvis Quality of tf2 pain is described as aching. Neuro: No deficits noted. Cardiovascular: No deficits noted. Respiratory: No deficits noted. GI: No deficits noted. : No signs and/or symptoms were reported regarding the genitourinary system. EENT: No deficits noted. No signs and/or symptoms were reported regarding the EENT system. Derm: No deficits noted. No signs and/or symptoms reported regarding the dermatologic system. Musculoskeletal: No deficits noted. No signs and/or symptoms reported regarding the musculoskeletal system. Vital Signs: 16:02 BP 135 / 93; Pulse 81; Resp 16 S; Temp 98.6; Pulse Ox 100% ; Weight 73.94 kg; Height 5 cm10 ft. 6 in. ; Pain 4/10; 17:30 BP 100 / 73; Pulse 81; Resp 16; Pulse Ox 100% on R/A; tf2 16:02 Body Mass Index 26.31 (73.94 kg, 167.64 cm) cm10 16:02 Pain Scale: Adult cm10 [place] Coma Score: 17:30 Eye Response: spontaneous(4). Motor Response: obeys commands(6). Verbal Response: tf2 oriented(5). Total: 15. ED Course: 15:22 Patient arrived in ED. rg4 15:22 [facility]ol[facility] Burnett FNP [facility] 7 15:22 Edmond Sepulveda MD is Attending Physician. 7 16:04 Triage completed. cm10 16:05 Arm band placed on Patient placed in an exam room, on a stretcher. cm10 16:34 US Transvaginal Ob In Process Unspecified. EDMS 17:20 Bria Mejia, RN is Primary Nurse. tf2 17:30 No apparent distress. Awaiting lab results, Awaiting radiology results. tf2 17:30 Patient has correct armband on for positive identification. Bed in low position. Call tf2 light in reach. Side rails up X2. Provided Education on: PROCESS OF WORKUP. 17:30 No provider procedures requiring assistance completed. Inserted saline lock: 18 gauge tf2 in left antecubital area, using aseptic technique. 17:53 Basic Metabolic Panel Sent. tf2 17:53 CBC with Diff Sent. tf2 17:53 Test, Urine Sent. tf2 17:53 Quantitative Hcg Sent. tf2 17:53 Urinalysis w/ reflexes Sent. tf2 19:34 IV discontinued, intact, bleeding controlled, No redness/swelling at site. Pressure eh3 dressing applied. Administered Medications: No medications were administered Medication: 17:30 VIS not applicable for this client. tf2 Outcome: 18:28 Discharge ordered by . nelda 20:25 Patient left the ED. 3 Signatures: Dispatcher [employer] Renetta Gregory 4 Yusra Flores, RN RN eh3 Yolie Burnett, SAFETY SPECIALIST SAFETY SPECIALIST 7 Day Guaman, RN RN cm10 Bria Mejia RN RN tf2
[2022-12-28 18:40] LABS: Potassium 3.7 mEq/L (3.5-5.1)
[2022-12-28 20:32] VITALS: TEMP 98.6; O2SAT 100
[2022-12-28 20:33] VITALS: BP 100/73
== END 2022-12-28 20:25 | disposition home or self-care (01) ==
LOC: ER 15:20
DX: O20.9 Hemorrhage in early pregnancy, unspecified (principal); Z3A.01 Less than 8 weeks gestation of pregnancy
CPT/HCPCS: 36415; 76817; 80048; 81003; 81025; 84702; 85025; 99283

== ENCOUNTER 2023-03-28 08:18 | Emergency (ER) | payer OTHER ==
--- OUTSIDE RECORDS SUMMARY | 2023-03-28 08:22 | XMS REPORT | Continuity of Care Document ---
:1990 Author Organization [facility] t Address [address] [place] [address] Care Team Providers Name Role Phone Pcp, Patient Does Not Have A Primary Care Physician [phone] Haven Schmitz Attending Clinician Unavailable [email or web address] Attending Clinician Unavailable Gregorio [facility] Attending Clinician Unavailable Unknown, Attending Attending Clinician Unavailable Jose Carlos Us Attending Clinician JOSE CARLOS HAINES Attending Clinician Unavailable Doctor Unassigned, [place] Attending Clinician Unavailable Darrel Wellington Attending Clinician Unavailable KIRSTIE Attending Clinician Unavailable Zulema Arroyo Attending Clinician Unavailable Ganesh Mcginnis Attending Clinician Unavailable [email or web address] Admitting Clinician Unavailable Physician, No Primary or Family Admitting Clinician Unavaila diogo NIEVES_JAYA Admitting Clinician Unavailable Payers Payer Name Policy Type Policy Number Effective Date Expiration Date S ource Problems Condition Condition Condition Status Onset Resolution Last Treating Co mments Source Name Details Category Date Date Treatment Clinician Date 39 weeks 39 weeks Disease Active 2017-05 Unive rs gestation gestation 1-21 ity of of of 00:00: [place] 00 [facility] josesito Branch Positive Positive Disease Active 2017-05 Unive rs GBS test GBS test 1-07 ity of 00:00: [place] 00 [facility] Branch Obesity Obesity Disease Active Univers (BMI (BMI 9-29 ity of 30-39.9) 30-39.9) 00:00: [place] 00 Medical Branch Anemia of Anemia of Disease [...] Univers obesity obesity 06-21 ity of 00:00: [place] 00 Medical Branch Rubella Rubella Disease Active Univers immune immune 06-21 [place] of [place] 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 Depression Depression Disease Active U nivers 06-21 ity of 00:00: [place] [facility] Generalize Generalize Disease Active U nivers d anxiety d anxiety 06-21 ity of disorder disorder 00:00: [place] [facility] Personal Personal Problem Active Commo n history of history of Sp jordyn gestationa gestationa - CHI l diabetes l diabetes [facility] Supervisio Supervisio Diagnosis Active Common n of n of Spirit - CH I with other with other [facility] reproducti reproducti Me dical ve or ve or Center obstetric obstetric history, history, first first trimester trimester Second Second Diagnosis Active Common trimester trimester Spir it - CH I [facility] Dysuria Dysuria Diagnosis Active Commo n Spirit - [facility] Allergies, Adverse Reactions, Alerts Allergy Allergy Status Severity Reaction(s) Onset Inactive Treating Comm ents Source Name Type Date Date Clinician No Known DA Active U [facility] 01-09 [place] [facility] [place] No Known DA Active U [facility] Allergie 8-19 [place] [facility] 00:[facility] 00 [place] NO KNOWN Drug Active Univers ALLERGIE Class ity of S [facility] Social History Social Habit Start Date Stop Date Quantity Comments Source Gender identity Universit y [facility] Sexual orientation Univer sity [facility] ASSERTION [facility] History of Social 2022-12-28 2022-12-28 Univers ity of function 00:00:00 00:00:00 [facility] Tobacco use and 2022-12-28 2022-12-28 Smokeless Universit y of exposure 00:00:00 00:00:00 tobacco non-user [facility] Alcohol intake 2022-12-28 2022-12-28 Current drinker Unive rsity of 00:00:00 00:00:00 of alcohol [facility] (finding) [place] Alcohol Comment 2014-06-21 2014-06-21 only socially Univer sity of 00:00:00 00:00:00 [facility] Sex Assigned At [birth year] Universit y of 00:00:00 00:00:00 [facility] Smoking Status Start Date Stop Date Source Never smoked tobacco [facility] Medications Ordered Filled Start Stop Current Ordering Indication Dosage Frequency Signature Comments Components Source Medication Medication Date Date Medication? Clinician (SIG) Name Name CitraNatal CitraNatal 0 Yes Malou 1 tablet Common Hanson Hanson 6-05 [facility] [facility] 00:00: - [facility] 00 [facility] Vitafol-OB Vitafol-OB 0 Yes Malou 1 tablet Common 5-08 [place] [facility] 00:00: - [facility] 00 [facility] Diclegis Diclegis 0 Yes Malou 2 Co mmon 4-27 [facility] [facility] 00:00: - [facility] Vital Signs Vital Name Observation Time Observation Value Comments Source Systolic blood 2022-12-28 20:04:00 123 mm[Hg] Univer sity of pressure [facility] Diastolic blood 2022-12-28 20:04:00 82 mm[Hg] Unive rsity of pressure [facility] Heart rate 2022-12-28 20:04:00 74 /min Universi ty of [facility] Body temperature 2022-12-28 20:04:00 37.06 Noni [facility] Respiratory rate 2022-12-28 20:04:00 18 /min [facility] Body height 2022-12-28 20:04:00 167.6 cm [facility] Body weight 2022-12-28 20:04:00 73.936 kg [facility] BMI 2022-12-28 20:04:00 26.31 kg/m2 [facility] Oxygen saturation in 2022-12-28 20:04:00 97 /min [facility] Arterial blood by [facility] Pulse oximetry Branch Procedures Procedure Date / Time Performed Performing Clinician [facility] e ASSIGNMENT OF BENEFITS 2022-12-28 19:51:49 Doctor Unassigned, No [facility] Encounters Start End Encounter Admission Attending Care Care Encounter Source Date/Time Date/Time Type Type Clinicians Facility Department ID 2023-04-19 2023-04-19 Outpatient Nadir [facility] [id number] [facility] 09:00:00 09:00:00 [facility] [address] [address] 2023-03-19 2023-03-19 Outpatient GC_GCBZW_Ka PRIV PRIV [id number] [facility] 00:00:00 00:00:00 didayana_S [id number] Medic al 2022-12-28 2022-12-28 Nurse Nurse, [facility] [id number] Univers 14:40:00 15:00:00 Visit Unknown, Attending HEALTH [id number] Jose Carlos Daniels [id number] [place] ALEX?BLEA [id number] [address] MEDICAL OFFICE BUILDING 2022-12-28 2022-12-28 Outpatient Mart HAINES [facility] [id number] Univers 14:40:00 14:40:00 JOSE CARLOS dao [facility] 2022-12-28 2022-12-28 Orders Doctor DODD [id number] Univers 00:00:00 00:00:00 Only Unassigned, ERUM [id number] [facility] [id number] Anders as [id number] [facility] 009 Branch 2022-10-11 2022-10-11 Emergency EM BRITTNEY WellingtonOLIVIA EO5 [id number] [facility] 14:52:00 15:31:00 Darrel 46 [facility] are [place] 2021-12-06 2021-12-06 Outpatient DESAI_RAKES MEHOP MEHOP [id number] [place] 09:22:00 09:22:00 H [id number] [facility] 2021-06-17 2021-06-17 Outpatient COH COH PIJFIFB VRT COH 00:00:00 00:00:00 [id number] 2021-03-06 2021-03-06 Inpatient EM Cruz LEONARD ERIK [id number] [facility] 11:18:00 13:27:00 Zulema 20 [facility] are [place] 2021-01-09 2021-01-09 Emergency EM BRITTNEY McginnisOLIVIA ERIK [id number] [facility] 02:18:00 04:15:00 Ganesh 72 [facility] are [place] 2017-10-26 2017-10-26 [facility] [id number] Common 11:00:00 11:00:00 [facility] 2017-09-28 2017-09-28 [facility] [id number] Common 10:30:00 10:30:00 [facility] - [facility] 2017-09-23 2017-09-23 [facility] 13 [id number] Common 16:25:00 16:25:00 t [facility] - I [facility] 2017-09-23 2017-09-23 [facility] 13 [id number] Common 16:21:00 16:21:00 t [facility] - [facility] 2017-09-23 2017-09-23 [facility] [id number] Common 13:50:00 13:50:00 t [facility] Care [facility] 2017-09-17 2017-09-17 Outpatient Shirley Watsont 13 [id number] Common 09:45:00 09:45:00 [facility] 2017-09-06 2017-09-06 Outpatient Shirley Shirleyt 13 [id number] Common 10:51:00 10:51:00 [facility] 2017-08-31 2017-08-31 Outpatient Shirley Shirleyt [id number] Common 10:45:00 10:45:00 t [facility] Results Test Description Test Time Test Comments [...] 48 hours toconf irm . URINALYSIS DIPSTICK [id number] 15:05:00 Test Item Value Reference Range Interpretation [...] LEUU) - XR FOOT 3 + V [id number] 16:03:00 [facility] : 1990 Sex: FPatient Name: GLENN GLASS Unit No: [id number] EXAMS: CPT: [id number] XR FOOT 3 + V RT [id number] Right foot 4 views HISTORY: fall FINDINGS: [...] S: 03/06/2021 (1606) BATCH NO: N/A Name: GLENN GLASS [facility] tagUin Phys: MD Jaimee Pickard [address] [facility] : 1990 Age: 30 Sex: F Ary Soto Loc: T.ERS Exam Date: 03/06/2021 Status: DEP ER PH: FAX:PAGE 1 Signed Report- XR ANKLE 3 + V RT 2021-03-06 12:04:00 [facility] : 1990 Sex: FPatient Name: GLENN GLASS Unit No: [id number] EXAMS: CPT: [id number] XR ANKLE 3 + V RT [id number] EXAM: XR RIGHT ANKLE 4 VIEWS DATE: 03/06/2021 11:25 AM INDICATION: Fall COMPARISON: None. TECHNIQUE: AP, bilateral oblique, and lateral radiographs of the ankle FINDINGS: No acute fracture or malalignment is identified. The ankle mortise is congruent. Moderate soft tissue swelling is seen about the ankle. There is a small ankle joint effusion. IMPRESSION: Moderate soft tissue swelling about the right ankle without underlying bony abnormality. Small right ankle joint effusion. at 1204 Reported and signed by: LISETTE MARINELLI M.D. CC: Zulema Arroyo MD; James Restrepo MD Technologist: Liz Taylor Fluoro Time: DAP (Gy m2): Air Kerma (mGy): Trscr Dt/Tm: 03/06/2021 (1204) by:[email or web address] Orig Print D/T: S: 03/06/2021 (1208) BATCH NO: N/A Name: MARSHAL,KARA [facility] [place] Phys: MD Jaimee Pickard [address] [facility] : 1990 Age: 30 Sex: F Ary Soto Loc: T.ERS Exam Date: 03/06/2021 Status: REG ER PH: FAX: PAGE 1 Signed ReportHCG SERUM [id number] 04:09:00 Test Item Value Reference Range Interpretation [...] LAST MENSTRUAL PERIOD: 01/08/21- US TRANSVAGINAL NON [id number] 04:06:00[facility] : 1990 Sex: FPatient Name: GLENN DURAN Unit No: [id number] EXAMS: CPT: [id number] [place] [id number] Pelvic sonogram, 01/09/2021. Clinical: Vaginal bleeding. Comment: [...] signed by: Syed Glass MD CC: Ganesh Mcginnis MD Technologist: Chemo Becker Probe: [id number] Trscr Dt/Tm: 01/09/2021 (0406) by:[email or web address] O rig Print D/T: S: 01/09/2021 (0409) BATCH NO: N/A Name: GLENN DURAN [facility] Phys: [id number] - Ganesh Mcginnis MD [address] [facility] : 1990 Age: 30 Sex: [place] : T.ERS Exam Date: 01/09/2021 Status: REG ER PH: FAX: PAGE 1 Signed ReportBASIC METABOLIC [id number] 03:14:00 Test Item Value Reference Range Interpretation [...] mg/dL 8.6-10.3 N = CA) BASIC METABOLIC [id number] 03:11:00 Test Item Value Reference Range Interpretation [...] 8.6-10.3 N UA RFLX MICR CULT IF [id number] 03:04:00 Test Item Value Reference Range Interpretation [...] Description: CLEAN CATCHUA RFLX MICR CULT IF [id number] 03:04:00 Test Item Value Reference Range Interpretation [...] culture: Suprapubic PainSpecimen Description: CLEAN CATCHCBC W/AUTO [id number] 02:55:00 Test Item Value Reference Range Interpretation [...]
[2023-03-28] MEDS ORDERED: ALBUTEROL 2.5 MG/3 ML NEB SOL ONE (08:52)
[2023-03-28] MEDS ORDERED: NA CHLORIDE 0.9% 1,000 ML ONE (08:52)
[2023-03-28] MEDS ORDERED: ONDANSETRON 4 MG/2 ML VIAL ONE (08:54)
[2023-03-28 09:00] LABS: Hematocrit 32.6 % (36.0-45.0); MCV 84.1 fL (80-100); MPV 9.1 fL (7.6-11.3); Platelets 171 thou/uL (152-406); RBC Red Blood Cell Count 3.88 M/uL (3.86-4.86)
[2023-03-28 09:11] LABS: Potassium 3.1 mEq/L (3.5-5.1); SARS-CoV-2 Antigen Rapid Res Negative (Negative)
--- NOTE | 2023-03-28 09:21 | ER ---
Nurse's Notes [facility] Name: Lizbet Glass Age: 32 yrs Sex: Female : 1990 Arrival Date: 03/28/2023 Time: 08:18 Bed 18 Private MD: Diagnosis: Influenza due to identified novel influenza A virus with other respiratory manifestations Presentation: 03/28 08:20 Chief complaint: Patient states: COUGH, HINES, EAR PRESSURE, SORE THROAT, VOMITING SINCE db WEDNESDAY. 8 WKS . NO COMPLICATIONS. G4, P3. Coronavirus screen: Vaccine status: Patient reports receiving the 2nd dose of the covid vaccine. Client denies travel out of the [place] in the last 14 days. At this time, the client does not indicate any symptoms associated with coronavirus-19. Ebola Screen: Patient negative for fever greater than or equal to 101.5 degrees Fahrenheit, and additional compatible Ebola Virus Disease symptoms Patient denies exposure to infectious person. Patient denies travel to an Ebola-affected area in the 21 days before illness onset. No symptoms or risks identified at this time. Initial Sepsis Screen: Does the patient meet any 2 criteria? No. Patient's initial sepsis screen is negative. Does the patient have a suspected source of infection? No. Patient's initial sepsis screen is negative. Risk Assessment: Do you want to hurt yourself or someone else? Patient reports no desire to harm self or others. Onset of symptoms was March 28, 2023. 08:20 Method Of Arrival: Ambulatory db 08:20 Acuity: SUKHWINDER 3 db Triage Assessment: 08:31 General: Appears in no apparent distress. comfortable, Behavior is calm, cooperative. db Pain: Denies pain. EENT: Reports nasal congestion SORE THROAT. Neuro: Level of Consciousness is awake, alert, obeys commands, Oriented to person, place, time, situation. Respiratory: Airway is patent Respiratory effort is even, unlabored, Respiratory pattern is regular, symmetrical. GI: Abdomen is flat, non-distended, Reports nausea, vomiting. 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 - Social history:: Smoking status: Patient denies any tobacco usage or history of. Screenin:33 [facility] ED Fall Risk Assessment (Adult) History of falling in the last 3 months, db including since admission No falls in past 3 months (0 pts) Confusion or Disorientation No (0 pts) Intoxicated or Sedated No (0 pts) Impaired Gait No (0 pts) Mobility Assist Device Used No (0 pt) Altered Elimination No (0 pt) Score/Fall Risk Level 0 - 2 = Low Risk Oriented to surroundings, Maintained a safe environment. Abuse screen: Denies threats or abuse. Denies injuries from another. Nutritional screening: No deficits noted. Tuberculosis screening: No symptoms or risk factors identified. Assessment: 08:33 Reassessment: Patient appears in no apparent distress at this time. Patient and/or db family updated on plan of care and expected duration. Pain level reassessed. Patient is alert, oriented x 3, equal unlabored respirations, skin warm/dry/pink. SEE TRIAGE FOR INITIAL ASSESSMENT. 09:30 Reassessment: Patient appears in no apparent distress at this time. Patient and/or db family updated on plan of care and expected duration. Pain level reassessed. Patient is alert, oriented x 3, equal unlabored respirations, skin warm/dry/pink. Patient states feeling better. General: Appears in no apparent distress. comfortable, Behavior is calm, cooperative. Neuro: Level of Consciousness is awake, alert, obeys commands, Oriented to person, place, time, situation, Speech is normal. Respiratory: Airway is patent Respiratory effort is even, unlabored, Respiratory pattern is regular, symmetrical. Vital Signs: 08:20 BP 128 / 70; Pulse 114; Resp 18; Temp 99.3(O); Pulse Ox 97% on R/A; Weight 73.03 kg; db Height 5 ft. 7 in. ; 08:45 BP 116 / 73; Pulse 110; Resp 18; Pulse Ox 98% on R/A; db 09:00 BP 120 / 65; Pulse 108; Resp 18; Pulse Ox 100% on R/A; db 08:20 Body Mass Index 25.22 (73.03 kg, 170.18 cm) ED Course: 08:21 Patient arrived in ED. mr 08:21 [place], Yolie, SYSTEMS ANALYST [facility] 7 08:21 Edmond Sepulveda MD is Attending Physician. 7 08:29 Jo Ann Conner, RN is Primary Nurse. db 08:31 Triage completed. db 08:33 Arm band placed on Patient placed in an exam room. db 08:33 Patient has correct armband on for positive identification. Bed in low position. Call db light in reach. Side rails up X 1. Pulse ox on. NIBP on. 08:45 Inserted saline lock: 22 gauge in right antecubital area, using aseptic technique. db Blood collected. 09:30 Provided Education on: DISCHARGE. db 09:30 No provider procedures requiring assistance completed. IV discontinued, intact, db bleeding controlled, No redness/swelling at site. Administered Medications: 08:45 Drug: NS 0.9% IV 1000 ml IV at 1 bolus Per protocol; 1000 mL bolus Route: IV; Rate: 1 db bolus; Site: right antecubital; 09:30 Follow up: Response: No adverse reaction; IV Status: Completed infusion; IV Intake: db 1000ml 08:45 Drug: Ondansetron IVP 4 mg IVP once; over 2 minutes Route: IVP; Site: right antecubital;db 09:30 Follow up: Response: No adverse reaction db 08:45 Drug: Albuterol Inhalation 2.5 mg Inhalation once Route: Inhalation; db 09:30 Follow up: Response: No adverse reaction db 09:26 Drug: Potassium Chloride PO 40 mEq PO once Route: PO; db 09:30 Follow up: Response: No adverse reaction db Medication: 08:33 VIS not applicable for this client. db Intake: 09:30 IV: 1000ml; Total: 1000ml. db Outcome: 09:20 Discharge ordered by . jh7 09:25 Discharged to home ambulatory, with family, db 09:30 Condition: stable db 09:30 Discharge instructions given to patient, Instructed on discharge instructions, follow up and referral plans. Prescriptions given X 3, 09:39 Patient left the ED. db Signatures: Butler Galilea, Reg Reg Yolie Harley, SYSTEMS ANALYST SYSTEMS ANALYST 7 Jo Ann Conner, RN RN db Corrections: (The following items were deleted from the chart) 08:33 08:20 Chief complaint: Patient states: COUGH, HINES, EAR PRESSURE, SORE THROAT, VOMITING db SINCE WEDNESDAY. 8 WKS . NO COMPLICATIONS db
--- NOTE | 2023-03-28 09:21 | EDPHYS ---
Physician Documentation [facility] Name: Lizbet Glass Age: 32 yrs Sex: Female : 1990 Arrival Date: 03/28/2023 Time: 08:18 Bed 18 Private MD: ED Physician Edmond Sepulveda HPI: 03/28 08:20 This 32 yrs old Female presents to ER via Ambulatory with complaints of 18 wks jh7 , Flu Symptoms. 08:20 Onset: The symptoms/episode began/occurred 2 day(s) ago. Associated signs and symptoms: jh7 Pertinent positives: congestion, cough, earache, nasal discharge, vomiting, Pertinent negatives: abdominal pain, chest pain. 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 - Social history:: Smoking status: Patient denies any tobacco usage or history of. ROS: 08:31 Eyes: Negative for injury, pain, redness, and discharge, Neck: Negative for injury, jh7 pain, and swelling, Back: Negative for injury and pain, MS/Extremity: Negative for injury and deformity, Skin: Negative for injury, rash, and discoloration, Neuro: Negative for headache, weakness, numbness, tingling, and seizure, 08:31 Constitutional: Positive for body aches, malaise, 08:31 ENT: Positive for ear pain, 08:31 Respiratory: Positive for cough, Negative for wheezing, 08:31 Abdomen/GI: Positive for nausea and vomiting, Negative for abdominal pain, diarrhea, constipation, 08:31 All other systems are negative, Exam: 08:31 Constitutional: This is a well developed, well nourished patient who is awake, alert, jh7 and in no acute distress. Head/Face: Normocephalic, atraumatic. Neck: Trachea midline, no thyromegaly or masses palpated, and no cervical lymphadenopathy. Supple, full range of motion without nuchal rigidity, or vertebral point tenderness. No Meningismus. Cardiovascular: Regular rate and rhythm with a normal S1 and S2. No gallops, murmurs, or rubs. Normal PMI, no JVD. No pulse deficits. Abdomen/GI: Soft, non-tender, with normal bowel sounds. No distension or tympany. No guarding or rebound. No evidence of tenderness throughout. Back: No spinal tenderness. No costovertebral tenderness. Full range of motion. Skin: Warm, dry with normal turgor. Normal color with no rashes, no lesions, and no evidence of cellulitis. MS/ Extremity: Pulses equal, no cyanosis. Neurovascular intact. Full, normal range of motion. Neuro: Awake and alert, GCS 15, oriented to person, place, time, and situation. Motor strength 5/5 in all extremities. Sensory grossly intact. Normal gait. 08:31 Constitutional: The patient appears alert, awake, obviously ill, 08:31 ENT: Posterior pharynx: pooling of secretions, that are mild, 08:31 Respiratory: the patient does not display signs of respiratory distress, Respirations: normal, Breath sounds: are clear throughout, Respiratory rate: 20 Moist, hacking cough, Vital Signs: 08:20 BP 128 / 70; Pulse 114; Resp 18; Temp 99.3(O); Pulse Ox 97% on R/A; Weight 73.03 kg; db Height 5 ft. 7 in. ; 08:45 BP 116 / 73; Pulse 110; Resp 18; Pulse Ox 98% on R/A; db 09:00 BP 120 / 65; Pulse 108; Resp 18; Pulse Ox 100% on R/A; db 08:20 Body Mass Index 25.22 (73.03 kg, 170.18 cm) MDM: 08:[address] [facility] 09:15 Differential diagnosis: viral Infection, URI, bronchitis. Data reviewed: vital signs, [facility] nurses notes. I considered the following discharge prescriptions or medication management in the emergency department Medications were administered in the Emergency Department. See MAR. Counseling: I had a detailed discussion with the patient and/or guardian regarding the historical points, exam findings, and any diagnostic results supporting the discharge/admit diagnosis, to return to the emergency department if symptoms worsen or persist or if there are any questions or concerns that arise at home. Response to treatment: the patient's symptoms have markedly improved after treatment. 03/28 08:29 Order name: CBC w/o diff; Complete Time: 09:05 [facility] 03/28 08:29 Order name: BMP; Complete Time: 09:12 [facility] 03/28 08:29 Order name: Flu; Complete Time: 09:12 [facility] 03/28 08:29 Order name: SARS RAPID; Complete Time: 09:12 [facility] Administered Medications: 08:45 Drug: NS 0.9% IV 1000 ml IV at 1 bolus Per protocol; 1000 mL bolus Route: IV; Rate: 1 db bolus; Site: right antecubital; 09:30 Follow up: Response: No adverse reaction; IV Status: Completed infusion; IV Intake: db 1000ml 08:45 Drug: Ondansetron IVP 4 mg IVP once; over 2 minutes Route: IVP; Site: right antecubital;db 09:30 Follow up: Response: No adverse reaction db 08:45 Drug: Albuterol Inhalation 2.5 mg Inhalation once Route: Inhalation; db 09:30 Follow up: Response: No adverse reaction db 09:26 Drug: Potassium Chloride PO 40 mEq PO once Route: PO; db 09:30 Follow up: Response: No adverse reaction db Disposition: 09:55 Co-signature as Attending Physician, Edmond Sepulveda MD I reviewed the patient's care rn provided by the Advanced Practice Provider and agree with the diagnosis and treatment plan. Disposition Summary: 03/28/23 09:20 Discharge Ordered Notes: Location: [place] [id number] Problem: [facility] Symptoms: have improved [facility] Condition: Stable [facility] Diagnosis - Influenza due to identified novel influenza A virus with other respiratory [facility] manifestations Followup: [facility] - With: Private Physician - When: 2 - 3 days - Reason: Recheck today's complaints Discharge Instructions: - Discharge Summary Sheet ds4 - Influenza, Adult [facility] Forms: - SBAR form ds4 - Medication Reconciliation Form [facility] - Thank You Letter [facility] - Patient Portal Instructions [facility] - Leadership Thank You Letter [facility] - Work release form db Prescriptions: - Tamiflu 75 mg Oral Capsule - take 1 capsule ORAL route every 12 hours for 5 days; 10 capsule; Refills: 0, [facility] Product Selection Permitted - Zofran 4 mg Oral tablet - take 1 tablet ORAL route every 4-6 hours As needed; 20 tablet; Refills: 0, [facility] Product Selection Permitted - Albuterol Sulfate 2.5 mg /3 mL (0.083 %) Inhalation Solution for Nebulization - inhale 1 unit NEBULIZATION route every 8 hours As needed; 1 Each; Refills: 0, jh7 Product Selection Permitted Signatures: Dispatcher [employer] Edmond Spear MD MD rn Yolie Burnett, PRENATAL GENETIC COUNSELOR PRENATAL GENETIC COUNSELOR 7 Jo Ann Conner, RN RN db
[2023-03-28] MEDS ORDERED: POTASSIUM CL SA 10 MEQ TAB PO ONE (09:39)
[2023-03-28 10:06] VITALS: TEMP 99.3
[2023-03-28 10:08] VITALS: BP 120/65; O2SAT 100
== END 2023-03-28 09:39 | disposition home or self-care (01) ==
LOC: ER 08:18
DX: O99.512 Diseases of the respiratory system complicating pregnancy, second trimester (principal); J10.1 Influenza due to other identified influenza virus with other respiratory manifestations; Z3A.18 18 weeks gestation of pregnancy; Z11.52 Encounter for screening for COVID-19
CPT/HCPCS: 96361; 80048; 36415; 85027; 87804 ×2; 96374; 99285; 87811; J7613; J2405; J7030

== ENCOUNTER 2025-03-17 10:50 | Emergency (ER) | payer OTHER ==
[2025-03-17 11:41] LABS: Absolute Lymphocytes (CBC) 1.2 K/uL (0.7-4.9); Hematocrit 36.6 % (36.0-45.0); Hemoglobin 12.4 g/dL (12.0-15.0); MCH 29.3 pg (27.0-35.0); MCHC 33.8 g/dL (32.0-36.0); MCV 86.8 fL (80-100); MPV 9.5 fL (7.6-11.3); Nucleated RBC Absolute Count 0.0 (0-0); Nucleated Red Blood Cells % 0.0 % (0-0); RBC Red Blood Cell Count 4.22 M/uL (3.86-4.86); White Blood Count 8.10 thou/uL (4.3-10.9)
[2025-03-17 11:48] LABS: Urine Crystals Unidentified Moderate /HPF (None Seen); Urine Micro Reflex YN NO BILL MICROSCOPIC; Urine WBC Clump Many /HPF (None Seen); Urine Yeast (Budding) Moderate /HPF (None Seen)
[2025-03-17 11:55] LABS: Anion Gap 8.7 mEq/L (5.0-15.0); BUN Blood Urea Nitrogen 5.0 mg/dL (7-18); Glucose Level 87.0 mg/dL (74-106); Potassium 3.7 mEq/L (3.5-5.1)
[2025-03-17] MEDS ORDERED: CEFTRIAXONE 1000 MG/VIAL ONE (11:55)
[2025-03-17] MEDS ORDERED: NA CHLORIDE 0.9% 100 ML ONE (11:55)
[2025-03-17] MEDS ORDERED: ACETAMINOPHEN 500 MG TAB ONE (12:01)
[2025-03-17] MEDS ORDERED: PHENAZOPYRIDINE 100MG TAB PO ONE (12:02)
--- NOTE | 2025-03-17 12:11 | EDPHYS ---
Physician Documentation [facility] Name: Lizbet Glass Age: 34 yrs Sex: Female : 1990 Arrival Date: 03/17/2025 Time: 10:50 Bed 4 Private MD: ED Physician Edmond Sepulveda HPI: 03/17 11:05 This 34 yrs old Female presents to ER via Ambulatory with complaints of dr5 Urinary Problem, 17 weeks . 11:05 Onset: The symptoms/episode began/occurred 2 day(s) ago. Patient is a 34-year-old dr5 female with no past medical history coming in with 2 days of dysuria, urinary burning, and intermittent right flank pain has been going on for the past 2 days. Patient reports taking Azo with mild relief and continued dysuria. Patient denies vaginal bleeding, vaginal discharge, abdominal cramping. Patient is G6, P5 and is currently approximately 17 weeks . Patient denies any issues with baby.. Historical: - Allergies: 11:03 No Known Allergies; bp - Home Meds: 11:03 Zofran Oral [Active]; bp - PMHx: 11:03 None; bp - Immunization history:: Adult Immunizations up to date. - Infectious Disease History:: Denies. - Social history:: Smoking status: Patient denies any tobacco usage or history of. ROS: 11:05 Constitutional: as per hpi dr5 Exam: 11:05 Constitutional: This is a well developed, well nourished patient who is awake, alert, dr5 and in no acute distress. Head/Face: Normocephalic, atraumatic. Eyes: Pupils equal round and reactive to light, extra-ocular motions intact. Lids and lashes normal. Conjunctiva and sclera are non-icteric and not injected. Cornea within normal limits. Periorbital areas with no swelling, redness, or edema. Neck: Trachea midline, no thyromegaly or masses palpated, and no cervical lymphadenopathy. Supple, full range of motion without nuchal rigidity, or vertebral point tenderness. No Meningismus. Chest/axilla: Normal chest wall appearance and motion. Nontender with no deformity. No lesions are appreciated. Cardiovascular: Regular rate and rhythm with a normal S1 and S2. Normal PMI, no JVD. No pulse deficits. Respiratory: Lungs have equal breath sounds bilaterally, clear to auscultation. No rales, rhonchi or wheezes noted. No increased work of breathing, no retractions or nasal flaring. 11:05 Back: No spinal tenderness. No costovertebral tenderness. Full range of motion. Skin: Warm, dry with normal turgor. Normal color with no rashes, no lesions, and no evidence of cellulitis. MS/ Extremity: Pulses equal, no cyanosis. Neurovascular intact. Full, normal range of motion. Neuro: Awake and alert, GCS 15, oriented to person, place, time, and situation. Cranial nerves II-XII grossly intact. Motor strength 5/5 in all extremities. Sensory grossly intact. Cerebellar exam normal. Normal gait. 11:05 Abdomen/GI: Inspection: abdomen appears normal, Bowel sounds: normal, active, Palpation: abdomen is soft and non-tender, soft, 11:05 Back: CVA tenderness, is absent, Vital Signs: 11:02 BP 132 / 70; Pulse 97; Resp 16; Temp 97.9; Pulse Ox 97% ; Weight 73.48 kg; Height 5 ft. bp 6 in. ; 11:02 Body Mass Index 26.15 (73.48 kg, 167.64 cm) bp MDM: 10:55 Medical Screening Exam initiated dr5 11:53 Differential diagnosis: viral Infection, bacterial infection, UTI. Data reviewed: vital dr5 signs, nurses notes, lab test result(s), CBC, white blood cell count, hemoglobin, hematocrit, platelets, electrolytes, sodium, potassium, chloride, serum bicarbonate, BUN, creatinine, serum glucose, urinalysis, bacteruria. Consideration of Admission/Observation Escalation of care including admission/observation considered. Escalation considered patient found to have acute kidney injury. I considered the following discharge prescriptions or medication management in the emergency department I discussed and recommended Over The Counter medications, Medications were administered in the Emergency Department. See MAR. Test considered but Not performed: Ultrasound Ultrasound considered but patient not having vaginal bleeding or abdominal cramping. Care significantly affected by the following Social Determinants of Health: Poor access to healthcare and/or lack of insurance, Poor access to transportation, Problems related to employment. Counseling: I had a detailed discussion with the patient and/or guardian regarding the historical points, exam findings, and any diagnostic results supporting the discharge/admit diagnosis, the presence of at least one elevated blood pressure reading (>120/80) during this emergency department visit, lab results, the need for outpatient follow up, for definitive care, a family practitioner, an OB/Gyne specialist, to return to the emergency department if symptoms worsen or persist or if there are any questions or concerns that arise at home. Medication response: Rocephin. Response to treatment: the patient's symptoms have markedly improved after treatment. Special discussion: I discussed with the patient/guardian in detail that at this point there is no indication for admission to the hospital. It is understood, however, that if the symptoms persist or worsen the patient needs to return immediately for re-evaluation. Based on the history and exam findings, there is no indication for further emergent testing or inpatient evaluation. I discussed with the patient/guardian the need to see the OB Gyne specialist for further evaluation of the symptoms. ED course: Patient found to have urinary tract infection. No acute kidney injury noted on blood work and no CVA tenderness. Will place patient on outpatient antibiotics and have her follow-up OB. All question answered. Strict ER precautions given. 03/17 11:05 Order name: CBC with Diff; Complete Time: 11:50 dr5 03/17 11:05 Order name: BMP; Complete Time: 11:56 dr5 03/17 11:40 Order name: Urine Microscopic Only; Complete Time: 11:50 EDMS Administered Medications: 12:00 Drug: Rocephin IV 1 grams IV at per protocol once; Given slow IV push per pharmacy bp instructions Route: IV; Rate: per protocol; Site: left antecubital; 12:30 Follow up: IV Status: Completed infusion ss 12:04 Drug: Acetaminophen PO 1000 mg PO once Route: PO; bp 12:45 Follow up: Response: No adverse reaction ss 12:04 Drug: Phenazopyridine PO 200 mg PO once Route: PO; bp 12:45 Follow up: Response: No adverse reaction ss Disposition: 12:47 Co-signature as Attending Physician, Edmond Sepulveda MD I reviewed the patient's care rn provided by the Advanced Practice Provider and agree with the diagnosis and treatment plan. Disposition Summary: 03/17/25 12:10 Discharge Ordered Notes: Location: Home dr5 Condition: Stable dr5 Diagnosis - UTI/ Urinary tract infection, site not specified dr5 - Candidiasis of vulva and vagina dr5 Followup: dr5 - With: Emergency Department - When: As needed - Reason: Worsening of condition Followup: dr5 - With: Private Physician - When: 1 - 2 days - Reason: Recheck today's complaints, Continuance of care, Re-evaluation by your physician Discharge Instructions: - Discharge Summary Sheet dr5 - Vaginal Yeast Infection, Adult dr5 - Urinary Tract Infection, Adult, [id number] dr5 Forms: - Medication Reconciliation Form dr5 - Antibiotic Education dr5 - Patient Portal Instructions dr5 - Leadership Thank You Letter dr5 Prescriptions: - Cephalexin 500 mg Oral Capsule - take 1 capsule ORAL route every 12 hours for 10 days; 20 capsule; Refills: 0, dr5 Product Selection Permitted - Clotrimazole 3 Day 2 % Vaginal cream - insert 1 applicatorful VAGINAL route At bedtime for 7 days; 7 application; dr5 Refills: 0, Product Selection Permitted - Pyridium 200 mg Oral Tablet - take 1 tablet ORAL route every 8 hours for 3 days; 9 tablet; Refills: 0, dr5 Product Selection Permitted Signatures: Dispatcher [employer] EDMS Edmond Sepulveda MD MD rn Peltier, Brian RN RN Jose Noland, RN LIAISON-C RN LIAISON-Cdr5 Tara Villaseñor RN ss Corrections: (The following items were deleted from the chart) 11:40 11:03 UA Rfx Donald Cult if indicated+[id number] ordered. EDMS EDMS
--- NOTE | 2025-03-17 12:11 | ER ---
Nurse's Notes [facility] Name: Lizbet Glass Age: 34 yrs Sex: Female : 1990 Arrival Date: 03/17/2025 Time: 10:50 Bed 4 Private MD: Diagnosis: UTI/ Urinary tract infection, site not specified;Candidiasis of vulva and vagina Presentation: 03/17 11:02 Chief complaint: Patient states: 2 DAYS DYSURIA, FREQUENCY AND R FLANK PAIN. bp Coronavirus screen: At this time, the client does not indicate any symptoms associated with coronavirus-19. Ebola Screen: No symptoms or risks identified at this time. Initial Sepsis Screen: Does the patient meet any 2 criteria? No. Patient's initial sepsis screen is negative. Does the patient have a suspected source of infection? No. Patient's initial sepsis screen is negative. Risk Assessment: Do you want to hurt yourself or someone else? Patient reports no desire to harm self or others. Onset of symptoms is unknown. 11:02 Method Of Arrival: Ambulatory bp 11:02 Acuity: SUKHWINDER 3 bp Triage Assessment: 11:03 General: Appears in no apparent distress. uncomfortable, Behavior is calm, cooperative, bp appropriate for age. Pain: Complains of pain in right flank. EENT: No deficits noted. Neuro: No deficits noted. Cardiovascular: No deficits noted. Respiratory: No deficits noted. GI: No signs and/or symptoms were reported involving the gastrointestinal system. : Reports burning with urination, pain in right flank(s), urinary frequency. Derm: No deficits noted. Musculoskeletal: No deficits noted. Historical: - Allergies: 11:03 No Known Allergies; bp - Home Meds: 11:03 Zofran Oral [Active]; bp - PMHx: 11:03 None; bp - Immunization history:: Adult Immunizations up to date. - Infectious Disease History:: Denies. - Social history:: Smoking status: Patient denies any tobacco usage or history of. Vital Signs: 11:02 BP 132 / 70; Pulse 97; Resp 16; Temp 97.9; Pulse Ox 97% ; Weight 73.48 kg; Height 5 ft. bp 6 in. ; 11:02 Body Mass Index 26.15 (73.48 kg, 167.64 cm) bp ED Course: 10:53 Patient arrived in ED. im 10:55 Tim Bob, RN is Primary Nurse. bp 10:55 Jose [facility] F[facility]C [facility]5 10:55 Edmond Sepulveda MD is Attending Physician. dr5 11:03 Triage completed. bp 11:03 Arm band placed on. bp 12:45 No provider procedures requiring assistance completed. IV discontinued, intact, ss bleeding controlled, No redness/swelling at site. Pressure dressing applied. Administered Medications: 12:00 Drug: Rocephin IV 1 grams IV at per protocol once; Given slow IV push per pharmacy bp instructions Route: IV; Rate: per protocol; Site: left antecubital; 12:30 Follow up: IV Status: Completed infusion ss 12:04 Drug: Acetaminophen PO 1000 mg PO once Route: PO; bp 12:45 Follow up: Response: No adverse reaction ss 12:04 Drug: Phenazopyridine PO 200 mg PO once Route: PO; bp 12:45 Follow up: Response: No adverse reaction ss Outcome: 12:10 Discharge ordered by MD. dr5 12:45 Discharged to home ambulatory, ss 12:45 Condition: good 12:45 Discharge instructions given to patient, Instructed on discharge instructions, follow up and referral plans. medication usage, Demonstrated understanding of instructions, follow-up care, medications, Prescriptions given X 3, 12:46 Patient left the ED. ss Signatures: Tara Villaseñor, RN RN Tim Bob, RN RN Meera Webber Jose Rosa FNP-C FISH [id number]
[2025-03-17 12:53] VITALS: BP 132/70; TEMP 97.9; O2SAT 97
== END 2025-03-17 12:46 | disposition home or self-care (01) ==
LOC: ER 10:50
DX: O23.42 Unspecified infection of urinary tract in pregnancy, second trimester (principal); O98.812 Other maternal infectious and parasitic diseases complicating pregnancy, second trimester; B37.31 Acute candidiasis of vulva and vagina; Z3A.17 17 weeks gestation of pregnancy
CPT/HCPCS: 96365; 85025; 80048; 36415; 81015; 99284; J0696